=== PATIENT | female | born 1965 | race Hispanic/Latino ===

== ENCOUNTER 2017-04-16 15:47 | Inpatient (IN) | payer SELFPAY ==
[2017-04-16 15:48] VITALS: BMI 24.9
--- NOTE | 2017-04-16 16:20 | C.PDOC ---
History Of Present Illness 51 y/o female presents to emergency department who states that she has been using heroin for years and "cannot do another day". Patient reports she is suicidal but denies suicidal plan or action. Patient denies drinking etoh or other drug use. Last use was this morning. Denies homicidal ideation. No other complaints on arrival. Time Seen by Provider: 04/16/17 16:12 Chief Complaint (Nursing): Substance Abuse History Per: Patient History/Exam Limitations: no limitations Onset/Duration Of Symptoms: Persistent Current Symptoms Are (Timing): Still Present Modifying Factor(s): Narcotics Associated Symptoms: Suicidal Thoughts. denies: Suicidal Plan Recent travel outside of the [place]: No Past Medical History Reviewed: Historical Data, Nursing Documentation, Vital Signs Vital Signs: Last Vital Signs Temp 97.7 F 04/16/17 16:12 Pulse 64 04/16/17 16:12 Resp 18 04/16/17 16:12 BP 104/54 L 04/16/17 16:12 Pulse Ox 99 04/16/17 18:23 - Medical History PMH: Depression Surgical History: Appendectomy - [facility] Procedures DRUG DETOXIFICATION (07/27/14) OTHER APPENDECTOMY (04/21/97) OTHER GROUP THERAPY (07/27/14) Family History: States: Unknown Family Hx - Social History Hx Tobacco Use: Yes Hx Alcohol Use: No Hx Substance Use: Yes - Immunization History Hx Tetanus Toxoid Vaccination: No Hx Influenza Vaccination: No Hx Pneumococcal Vaccination: No Review Of Systems Except As Marked, All Systems Reviewed And Found Negative. Constitutional: Negative for: Fever, Chills Cardiovascular: Negative for: Chest Pain Respiratory: Negative for: Cough, Shortness of Breath, Wheezing Gastrointestinal: Negative for: Vomiting Skin: Negative for: Rash Physical Exam - Physical Exam Appears: Non-toxic, No Acute Distress Skin: Normal Color, Warm, Dry Head: Atraumatic, Normacephalic Oral Mucosa: Moist Chest: Symmetrical Cardiovascular: Rhythm Regular Respiratory: Normal Breath Sounds, No Rales, No Rhonchi, No Wheezing Gastrointestinal/Abdominal: Normal Exam, Soft, No Tenderness Back: Normal Inspection Extremity: Normal ROM, Capillary Refill (< 2 sec. ) Neurological/Psych: Oriented x3, Normal Speech, Normal Cognition ED Course And Treatment - Laboratory Results Result Diagrams: 04/16/17 16:31 04/16/17 16:31 Lab Interpretation: No Acute Changes Interpretation Of Abnormal: UDS + opiates and cocaine O2 Sat by Pulse Oximetry: 99 (RA) Pulse Ox Interpretation: Normal Progress Note: Labs ordered. Discussed with crisis for eval at bedside. Patient will be admitted for heroin detox. Reevaluation Time: 18:22 Reassessment Condition: Unchanged (Yunior is medically cleared for detox admission.) Disposition - Disposition Disposition: HOSPITALIZED Disposition Time: 18:23 Condition: STABLE - Clinical Impression Clinical Impression: Narcotic addiction - Scribe Statement The provider has reviewed the documentation as recorded by the Scribe SM All medical record entries made by the Scribe were at my direction and personally dictated by me. I have reviewed the chart and agree that the record accurately reflects my personal performance of the history, physical exam, medical decision making, and the department course for this patient. I have also personally directed, reviewed, and agree with the discharge instructions and disposition.
[2017-04-16 16:34] LABS: BASO % 0.5 % (0.0-2.0); EOS # 0.1 K/uL (0.0-0.7); EOS % 2.3 % (0.0-4.0); HEMATOCRIT 36.7 % (34.0-47.0); LYMPH # 2.6 K/uL (1.0-4.3); LYMPH % 47.8 % (20.0-40.0); MEAN CORPUSCULAR HGB CONC 32.9 g/dL (33.0-37.0); MEAN PLATELET VOLUME 10.7 fL (7.2-11.7); MONO # 0.3 K/uL (0.0-0.8); MONO % 5.6 % (0.0-10.0); RED CELL DISTRIBUTION WIDTH 15.5 % (11.5-14.5); WHITE BLOOD COUNT 5.4 K/uL (4.8-10.8)
[2017-04-16 16:40] LABS: MEAN CELL VOLUME 88.1 fL (81.0-99.0)
[2017-04-16 17:06] LABS: ALCOHOL SERUM < 10 mg/dl (0-10); ALKALINE PHOSPHATASE 45 U/L (38-126); ALT/SGPT 39 U/L (9-52); AST/SGOT 27 U/L (14-36); BILIRUBIN,TOTAL 0.6 mg/dL (0.2-1.3); BLOOD UREA NITROGEN 11 mg/dL (7-17); CALCIUM 8.5 mg/dl (8.6-10.4); CARBON DIOXIDE 26 mmol/L (22-30); CHLORIDE 103 mmol/L (98-107); GFR AFRICAN-AMERICAN > 60; GLUCOSE,RANDOM 110 mg/dL (65-105); SODIUM 135 mmol/L (132-148); TOTAL PROTEIN 6.6 g/dL (6.3-8.3)
[2017-04-16 17:26] LABS: ALB/GLOB RATIO 1.1 (1.0-2.1)
[2017-04-16 18:04] LABS: RBC URINE 4 /hpf (0-3); URINE BACTERIA OCC (<OCC); URINE BILIRUBIN NEGATIVE (NEGATIVE); URINE BLOOD 1+ (NEGATIVE); URINE COLOR Yellow (YELLOW); URINE GLUCOSE (UA) NORMAL (Normal); URINE KETONE NEGATIVE (NEGATIVE); URINE LEUKOCYTE ESTERASE NEG Leu/uL (Negative); URINE PROTEIN NEGATIVE (NEGATIVE); WBC URINE 2 /hpf (0-5)
--- NOTE | 2017-04-16 21:51 | PCM.BM ---
<Fauzia Brown - Last Filed: 04/16/17 21:51> Treatment Plan Problems - Problems identified on initial assessmt Potential for opiate withdrawal Date Initiated: 04/16/17 Time Initiated: 21:51 Assessment reference: NA Status: Active Priority: 1 Treatment assets and liabiliti Patient Assests: cooperative, ADL independent, negotiates basic needs, cognitively intact Patient Liabilities: substance abuse, other (homeless) - Milieu Protocol Maintain good personal hygiene: daily Encourage regular showers, daily Remind patient to perform daily oral care, daily Assist patient to perform ADL's Conduct patient checks and document Observation sheet: Q15 minutes Maintain personal safety: every shift Educate patient to report safety concerns to staff, every shift Monitor environment for contraband/sharps Medication safety: Monitor for expected outcome, potential side effects: every shift, Assess barriers to learning: every shift, Assess readiness for medication education: every shift <Bro Arredondo - Last Filed: 04/18/17 00:23> - Diagnosis (1) Opioid use disorder, severe, dependence Status: Acute Interventions: 04/18/17 00:23 * Assess 7x/week regarding severity of withdrawal * Educate regarding risks, benefits, side effects and alternatives of medications * Use Motivational Interviewing for abstinence * Use CBT for relapse prevention * Medication management for withdrawal symptoms * Encourage medication assisted treatment * <Priti Pitts - Last Filed: 04/21/17 08:45> Family Contact Family involvement: Famliy/SO not involved Family contact: Patient declines to allow family contact at present - Goals for Treatment Patient goals for treatment: Complete detox and apply for O/P. Discharge/Continuing Care - Education Needs Education Needs: Patient Medication, Patient Diagnosis/Disease Process, Patient Coping Skills, Patient Anger Management skills, Patient Placement options, Patient Community resources - Discharge Discharge Criteria: No longer exhibiting s/s of withdrawal, Reduction of target symptoms Discharge to:: Home - Treatment Team Participation Patient/Family/SO Statement: 04/21/17 08:45 "i WANNA GO TO OUTPATIENT AFTER DETOX." Discussed with Family/SO: No Was Patient/Family/SO present at Treatment Team Meeting: Yes
[2017-04-17] MEDS ORDERED: Aluminum Hydroxide/Magnesium Hydroxide Susp (30 mL) PO PRN (10:34)
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
--- NOTE | 2017-04-18 13:29 | PCM.PYCHPN ---
Psychiatric Progress Note - Psychiatric Progress Note Patient seen today, length of contact: 15 min Patient Chief Complaint: "A little better" Problems Identified/Issues Discussed: The pt is seen, chart reviewed, case discussed with staff. The pt is compliant with medications and reports no side-effects. Symptoms are improving but needs more time to stabilize. After care discussed, support and psychoeducation given. Medication Change: Yes (detox changes daily) Medical Record Reviewed: Yes Mental Status Examination - Cognitive Function Orientation: Person, Place, Situation, Time Memory: Intact Attention: Poor Concentration: Poor Association: WNL Fund of Knowledge: WNL - Mood Mood: Neutral - Affect Affect: Constricted - Speech Speech: Appropriate - Formal Thought Process Formal Thought Process: No Impairment - Suicidal Ideation Suicidal Ideation: No - Homicidal Ideation Homicidal Ideation: No Goal/Treatment Plan - Goal/Treatment Plan Need for Continued Stay: Discharge may exacerbated symptoms, Severe functional impairment Progress Toward Problem(s) and Goals/Treatment Plan: methadone detox As needed medications Gabapentin for augmentation and cocaine wdw Attend groups and activities Supportive therapy and psychoeducation [place] for abstinence CBT for relapse prevention Encourage MAT Refer to rehab or IOP Attend self-help groups as well [place] and [place] for tobacco Flexeril added she has severe back pain
--- NOTE | 2017-04-18 18:30 | RAD ---
HISTORY: Rehab COMPARISON: No prior. TECHNIQUE: Chest PA and lateral FINDINGS: LUNGS: No active pulmonary disease. PLEURA: No significant pleural effusion identified. No pneumothorax apparent. CARDIOVASCULAR: Normal. OSSEOUS STRUCTURES: No significant abnormalities. VISUALIZED UPPER ABDOMEN: Normal. OTHER FINDINGS: None. IMPRESSION: No active disease.
--- NOTE | 2017-04-19 16:02 | PCM.PYCHPN ---
Psychiatric Progress Note - Psychiatric Progress Note Patient seen today, length of contact: 15 min Patient Chief Complaint: "I'm fine" Problems Identified/Issues Discussed: The pt is seen, chart reviewed, case discussed with staff. The pt reported that she is feeling fine with meds. She denied opioid withdrawal symptoms. The pt is compliant with medications and reports no side-effects. Symptoms are improving but needs more time to stabilize. After care discussed, support and psychoeducation given. DSM 5 Symptoms Update: opioid withdrawal opioid use disorder severe cocaine use disorder severe tobacco use disorder severe Medication Change: Yes (methadone taper) Medical Record Reviewed: Yes Mental Status Examination - Cognitive Function Orientation: Person, Place, Situation, Time Memory: Intact Attention: WNL Concentration: WNL Association: WNL Fund of Knowledge: WN Decription of patient's judgement and insights: fair/fair - Mood Mood: Neutral - Affect Affect: Constricted - Speech Speech: Appropriate - Formal Thought Process Formal Thought Process: No Impairment Psychotic Thoughts and Behaviors: denied - Suicidal Ideation Suicidal Ideation: No - Homicidal Ideation Homicidal Ideation: No Goal/Treatment Plan - Goal/Treatment Plan Need for Continued Stay: Discharge may exacerbated symptoms Progress Toward Problem(s) and Goals/Treatment Plan: methadone detox As needed medications Gabapentin for augmentation and cocaine wdw Attend groups and activities Supportive therapy and psychoeducation [place] for abstinence CBT for relapse prevention Encourage MAT Refer to rehab or IOP Attend self-help groups as well Patch and [place] for tobacco Estimated Date of D/C: 04/21/17 - Smoking Cessation Smoking Cessation Initiated: Yes
[2017-04-19] MEDS: Hydrocortisone 0.5% Cream(30 gm) TOP SCH (18:15)
[2017-04-20] MEDS: Hydrocortisone 0.5% Cream(30 gm) TOP SCH ×2 (09:33→18:08)
--- NOTE | 2017-04-20 15:43 | PCM.PYCHPN ---
Psychiatric Progress Note - Psychiatric Progress Note Patient seen today, length of contact: 15 min Patient Chief Complaint: "I'm fine" Problems Identified/Issues Discussed: The pt is seen, chart reviewed, case discussed with staff. The pt reported that she is feeling fine with meds. She reported that she had withdrawal symptoms earlier in the AM, but after taking meds she is feeling fine. The pt is compliant with medications and reports no side-effects. Symptoms are improving but needs more time to stabilize. After care discussed, support and psychoeducation given. DSM 5 Symptoms Update: Opioid dependence, withdrawal symptoms. Medication Change: Yes (detox changes daily) Medical Record Reviewed: Yes Mental Status Examination - Cognitive Function Orientation: Person, Place, Situation, Time Memory: Intact Attention: Poor Concentration: Poor Association: WNL Fund of Knowledge: WNL Decription of patient's judgement and insights: good/good - Mood Mood: Neutral - Affect Affect: Constricted - Speech Speech: Appropriate - Formal Thought Process Formal Thought Process: No Impairment - Suicidal Ideation Suicidal Ideation: No - Homicidal Ideation Homicidal Ideation: No Goal/Treatment Plan - Goal/Treatment Plan Need for Continued Stay: Discharge may exacerbated symptoms, Severe functional impairment Progress Toward Problem(s) and Goals/Treatment Plan: methadone detox As needed medications Gabapentin for augmentation and cocaine wdw Attend groups and activities Supportive therapy and psychoeducation [place] for abstinence CBT for relapse prevention Encourage MAT Refer to rehab or IOP Attend self-help groups as well [place] and [place] for tobacco Estimated Date of D/C: 04/21/17
[2017-04-20 20:41] VITALS: RESP 18
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
[2017-04-21 09:08] VITALS: BP 94/60; PULSE 71; TEMP 97.4; O2SAT 97
[2017-04-21] MEDS: Hydrocortisone 0.5% Cream(30 gm) TOP SCH (09:09)
== END 2017-04-21 09:20 | disposition home or self-care (01) | DRG 895 ==
LOC: C.ER 15:47 → C.7D 19:29
PROC: HZ2ZZZZ Detoxification Services for Substance Abuse Treatment (ICD-10-PCS; principal; 2017-04-16)
PROC: HZ52ZZZ Individual Psychotherapy for Substance Abuse Treatment, Cognitive-Behavioral (ICD-10-PCS; 2017-04-16)
PROC: HZ42ZZZ Group Counseling for Substance Abuse Treatment, Cognitive-Behavioral (ICD-10-PCS; 2017-04-16)
PROC: HZ59ZZZ Individual Psychotherapy for Substance Abuse Treatment, Supportive (ICD-10-PCS; 2017-04-16)
PROC: HZ56ZZZ Individual Psychotherapy for Substance Abuse Treatment, Psychoeducation (ICD-10-PCS; 2017-04-16)
PROC: HZ46ZZZ Group Counseling for Substance Abuse Treatment, Psychoeducation (ICD-10-PCS; 2017-04-16)
DX: F11.23 Opioid dependence with withdrawal (principal); R45.851 Suicidal ideations; F14.20 Cocaine dependence, uncomplicated; F17.210 Nicotine dependence, cigarettes, uncomplicated; M54.9 Dorsalgia, unspecified

== ENCOUNTER 2017-09-19 03:11 | Emergency (ER) | payer OTHER ==
[2017-09-19 03:12] VITALS: BMI 24.9
== END 2017-09-19 03:30 | disposition left against medical advice (07) ==
LOC: C.ER 03:11
DX: Z02.89 Encounter for other administrative examinations (principal)

== ENCOUNTER 2017-10-12 11:48 | Inpatient (IN) | payer MEDICAID, OTHER ==
[2017-10-12 11:48] VITALS: BMI 24.9
[2017-10-12 12:26] LABS: BASO % 0.2 % (0.0-2.0); LYMPH # 1.5 K/uL (1.0-4.3); LYMPH % 25.3 % (20.0-40.0); MEAN CELL VOLUME 89.6 fL (81.0-99.0); MEAN CORPUSCULAR HEMOGLOBIN 30.1 pg (27.0-31.0); MEAN CORPUSCULAR HGB CONC 33.6 g/dL (33.0-37.0); MEAN PLATELET VOLUME 10.2 fL (7.2-11.7); MONO # 0.3 K/uL (0.0-0.8); MONO % 5.8 % (0.0-10.0); NEUT % 68.7 % (50.0-75.0); RBC 4.3 Mil/uL (3.80-5.20); WHITE BLOOD COUNT 5.8 K/uL (4.8-10.8)
[2017-10-12 12:35] LABS: HCG,QUALITATIVE URINE NEGATIVE (NEGATIVE)
[2017-10-12 12:41] LABS: ALB/GLOB RATIO 1.1 (1.0-2.1); ALBUMIN 3.5 g/dL (3.5-5.0); ALT/SGPT 8 U/L (9-52); AST/SGOT 18 U/L (14-36); BLOOD UREA NITROGEN 11 mg/dL (7-17); CALCIUM 8.7 mg/dl (8.6-10.4); GFR AFRICAN-AMERICAN > 60; GFR NON-AFRICAN AMERICAN > 60
[2017-10-12 12:42] LABS: SQUAMOUS EPITHIAL 16 /hpf (0-5); URINE BACTERIA RARE (<OCC); URINE BILIRUBIN NEGATIVE (NEGATIVE); URINE CLARITY Hazy (Clear); URINE COLOR Yellow (YELLOW); URINE GLUCOSE (UA) NORMAL (Normal); URINE LEUKOCYTE ESTERASE NEG Leu/uL (Negative); URINE PROTEIN 1+ mg/dL (NEGATIVE); URINE UROBILINOGEN NORMAL mg/dL (0.2-1.0)
[2017-10-12 12:44] LABS: URINE BLOOD 1+ (NEGATIVE)
[2017-10-12 12:53] LABS: BARBITURATES, UR NEGATIVE (NEGATIVE); BENZODIAZEPINES, UR NEGATIVE (NEGATIVE); PHENCYCLIDINE, UR NEGATIVE (NEGATIVE)
[2017-10-12 13:02] LABS: OPIATES, UR POSITIVE (NEGATIVE)
--- NOTE | 2017-10-12 13:03 | RAD ---
HISTORY: Detox/Psy COMPARISON: Chest radiographs 04/18/2017. TECHNIQUE: Chest PA and lateral FINDINGS: LUNGS: No active pulmonary disease. PLEURA: No significant pleural effusion identified. No pneumothorax apparent. CARDIOVASCULAR: Normal. OSSEOUS STRUCTURES: No significant abnormalities. VISUALIZED UPPER ABDOMEN: Normal. OTHER FINDINGS: None. IMPRESSION: No interval acute cardiopulmonary disease appreciated.
--- NOTE | 2017-10-12 13:23 | C.PDOC ---
History Of Present Illness 52 year old female, with PMHx of heroin and cocaine abuse, presents to ED expressing suicidal thoughts without a plan. Last heroin intake was this morning. Otherwise, denies HI, hallucinations, chest pain, shortness of breath, headache, fever, chills, cough, nausea, vomiting, diarrhea, abdominal pain, dizziness, or any active physical complaints at this time. Time Seen by Provider: 10/12/17 12:00 Chief Complaint (Nursing): Psychiatric Evaluation History Per: Patient History/Exam Limitations: no limitations Onset/Duration Of Symptoms: Gradual Current Symptoms Are (Timing): Still Present Suicide/Self Injury Attempted (Context): None Modifying Factor(s): Cocaine Associated Symptoms: Suicidal Thoughts. denies: Suicidal Plan Involuntary Hold By: None Recent travel outside of the [place]: No Additional History Per: Patient Past Medical History Reviewed: Historical Data, Nursing Documentation, Vital Signs Vital Signs: Last Vital Signs Temp 98 F 10/12/17 11:56 Pulse 69 10/12/17 11:56 Resp 18 10/12/17 11:56 BP 90/55 L 10/12/17 11:56 Pulse Ox 96 10/12/17 13:39 - Medical History PMH: Depression Denies: Diabetes, Hepatitis, HIV, HTN, Seizures, Sexually Transmitted Disease Surgical History: Appendectomy - [facility] Procedures DETOXIFICATION SERVICES FOR SUBSTANCE ABUSE TREATMENT (04/16/17) DRUG DETOXIFICATION (07/27/14) GROUP WAREHOUSE DIRECTOR FOR SUBSTANCE ABUSE TREATMENT, PSYCHOEDUCATION (04/16/17) GROUP WAREHOUSE DIRECTOR FOR SUBSTANCE ABUSE, COGNITIVE BEHAVIORAL (04/16/17) INDIV PSYCHOTHERAPY FOR SUBSTANCE ABUSE TREATMENT, SUPPORT (04/16/17) INDIV PSYCHOTHERAPY FOR SUBSTANCE ABUSE, COGNITIV BEHAVIORAL (04/16/17) INDIV PSYCHOTHERAPY FOR SUBSTANCE ABUSE, PSYCHOEDUCATION (04/16/17) OTHER APPENDECTOMY (04/21/97) OTHER GROUP THERAPY (07/27/14) Family History: States: Unknown Family Hx - Social History Hx Tobacco Use: Yes Hx Alcohol Use: No Hx Substance Use: Yes - Immunization History Hx Tetanus Toxoid Vaccination: No Hx Influenza Vaccination: No Hx Pneumococcal Vaccination: No Review Of Systems Except As Marked, All Systems Reviewed And Found Negative. Constitutional: Negative for: Fever, Chills Cardiovascular: Negative for: Chest Pain, Palpitations Respiratory: Negative for: Cough, Shortness of Breath Gastrointestinal: Negative for: Nausea, Vomiting, Abdominal Pain Neurological: Negative for: Headache, Dizziness Psych: Positive for: Suicidal ideation Physical Exam - Physical Exam Appears: Non-toxic, No Acute Distress Skin: Normal Color, Warm, Dry, No Rash Head: Normacephalic Eye(s): bilateral: PERRL Nose: No Flaring, No Discharge Oral Mucosa: Moist, No Drooling Neck: Trachea Midline, Supple Cardiovascular: Rhythm Regular, No Murmur, No JVD Respiratory: No Decreased Breath Sounds, No Accessory Muscle Use Gastrointestinal/Abdominal: Soft, No Tenderness Extremity: Normal ROM, No Deformity Neurological/Psych: Oriented x3, Normal Speech ED Course And Treatment - Laboratory Results Result Diagrams: 10/12/17 12:21 10/12/17 12:21 Lab Interpretation: No Acute Changes O2 Sat by Pulse Oximetry: 96 (RA) Pulse Ox Interpretation: Normal Progress Note: Blood work, urinalysis, CXR ordered and reviewed. At 1:21PM, pt resting comfortably, not in any apparent distress. Afebrile, hemodynamicaly stable. NOn-toxic. Neurologicaly intact. Blood work review, appears normal. Pt is medically cleared for PES evaluation. After pt was seen by PES, case discussed with and admission to psych unit with Dx: Depession w/ suicidal ideation, opioid dependance recommend. Disposition - Disposition Disposition: HOSPITALIZED Disposition Time: 13:23 Condition: STABLE Forms: [facility] ([facility]wana) - Clinical Impression Clinical Impression: Narcotic addiction, Depression with suicidal ideation - PA / PROOF LOAD MECHANIC / Resident Statement MD/DO has reviewed & agrees with the documentation as recorded. - Scribe Statement The provider has reviewed the documentation as recorded by the Michelleibdayday Garcia All medical record entries made by the Michelleibdayday were at my direction and personally dictated by me. I have reviewed the chart and agree that the record accurately reflects my personal performance of the history, physical exam, medical decision making, and the department course for this patient. I have also personally directed, reviewed, and agree with the discharge instructions and disposition.
[2017-10-12 15:04] VITALS: O2SAT 98
--- NOTE | 2017-10-12 16:06 | PCM.BM ---
<Jersey Goodson - Last Filed: 10/12/17 16:03> Treatment Plan Problems - Problems identified on initial assessmt Depression Date Initiated: 10/12/17 Time Initiated: 16:04 Assessment reference: NA Status: Active Substance use Date Initiated: 10/12/17 Time Initiated: 16:04 Assessment reference: NA Status: Active Treatment assets and liabiliti Patient Assests: cooperative, ADL independent, negotiates basic needs, cognitively intact Patient Liabilities: live alone, financial problems (Unemployed), substance abuse (Heroin), medical problems (sciatica) - Milieu Protocol Maintain good personal hygiene: daily Encourage regular showers, every shift Remind patient to perform daily oral care, every shift Assist patient to perform ADL's Conduct patient checks and document Observation sheet: Q15 minutes (For Safety) Maintain personal safety: every shift Educate patient to report safety concerns to staff, every shift Monitor environment for contraband/sharps Medication safety: Monitor for expected outcome, potential side effects: every shift, Assess barriers to learning: every shift, Assess readiness for medication education: every shift <Anup Gandara - Last Filed: 10/13/17 10:26> - Diagnosis (1) Depression with suicidal ideation Status: Acute Interventions: 10/13/17 10:26 * Assess/adjust medications daily and /or as needed * See patient on an individual basis 7x/week to assess symptoms of depression * Monitor for side effects & effectiveness of medications * (2) Opioid use disorder, severe, dependence Status: Acute Interventions: 10/13/17 10:26 * Assess 7x/week regarding severity of withdrawal * Educate regarding risks, benefits, side effects and alternatives of medications * Use Motivational Interviewing for abstinence * Use CBT for relapse prevention * Medication management for withdrawal symptoms * Encourage medication assisted treatment * <Olesya Pacheco - Last Filed: 10/13/17 11:53> Family Contact Family involvement: Denis/SO not involved - Goals for Treatment Patient goals for treatment: "I want to go to [facility] rehab." Discharge/Continuing Care - Education Needs Education Needs: Patient Medication, Patient Coping Skills, Patient Placement options, Patient Community resources - Discharge Discharge Criteria: Tolerates medication w/o severe side effects, No longer exhibiting s/s of withdrawal, Reduction of target symptoms Discharge to:: Substance Abuse Rehab - Treatment Team Participation Discussed with Family/SO: No Was Patient/Family/SO present at Treatment Team Meeting: Yes
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
--- NOTE | 2017-10-14 10:06 | PCM.PYCHPN ---
Psychiatric Progress Note - Psychiatric Progress Note Patient seen today, length of contact: 15 min Patient Chief Complaint: CC: "I was feeling depressed ' Problems Identified/Issues Discussed: Patient seen and evaluated, chart reviewed and discussed with the nurse. Today patient reports a bit improvement in her depressed mood but still remained isolated, withdrawn and confined to her room. She is on methadone taper and reports withdrawal symptoms including cramps, back pain and sweating. She is taking medications and denies any side effects. Supportive therapy and psychoeducation were given. Medication Change: Yes Medical Record Reviewed: Yes Mental Status Examination - Cognitive Function Orientation: Person, Place, Situation, Time Memory: Intact Attention: WNL Concentration: Poor Association: WNL Fund of Knowledge: Poor - Mood Mood: Depressed, Anxious - Affect Affect: Constricted, Depressed - Speech Speech: Soft - Formal Thought Process Formal Thought Process: No Impairment - Suicidal Ideation Suicidal Ideation: No - Homicidal Ideation Homicidal Ideation: No Goal/Treatment Plan - Goal/Treatment Plan Need for Continued Stay: Severe depression anxiety, Severe functional impairment Progress Toward Problem(s) and Goals/Treatment Plan: Major depressive disorder recurrent severe without psychotic features CBT Psychoeducation Supportive therapy, group therapy, individual therapy -Trazodone 50 mg PO HS PRN -Remeron 30 mg PO HS -Atarax 25 mg PO q4H PRN Opioid use disorder severe -CBT -Psychoeducation -Supportive therapy, individual therapy -Use [place] for abstinence Opioid withdrawal -CBT -Psychoeducation -Supportive therapy, individual therapy -Start methadone taper -Start prn meds -Clonidine 0.1 mg PO q8 PRN -Neurontin 600 mg PO TID Cocaine use disorder moderate -Monitor signs and symptoms -Use [place] for abstinence - Smoking Cessation Smoking Cessation Initiated: No
--- NOTE | 2017-10-15 09:10 | PCM.PYCHPN ---
Psychiatric Progress Note - Psychiatric Progress Note Patient seen today, length of contact: 15 min Patient Chief Complaint: CC: "I'm doing better" Problems Identified/Issues Discussed: The pt is seen, chart reviewed, case discussed with staff. The pt is compliant with medications and reports no side-effects. Symptoms are improving but needs more time to stabilize. After care discussed, support and psychoeducation given. Patient reported that her mood is improving. Patient did not sleep well, "tossed and turned all night". Patient states her withdrawal symptoms are improving. Medication Change: Yes (Methadone taper) Medical Record Reviewed: Yes Mental Status Examination - Cognitive Function Orientation: Person, Place, Situation, Time Memory: Intact Attention: WNL Concentration: Poor Association: WNL Fund of Knowledge: Poor - Mood Mood: Depressed, Anxious - Affect Affect: Constricted, Depressed - Speech Speech: Soft - Formal Thought Process Formal Thought Process: No Impairment - Suicidal Ideation Suicidal Ideation: No - Homicidal Ideation Homicidal Ideation: No Goal/Treatment Plan - Goal/Treatment Plan Need for Continued Stay: Discharge may exacerbated symptoms, Severe functional impairment Progress Toward Problem(s) and Goals/Treatment Plan: Major depressive disorder recurrent severe without psychotic features CBT Psychoeducation Supportive therapy, group therapy, individual therapy -Trazodone 50 mg PO HS PRN -Remeron 30 mg PO HS -Atarax 25 mg PO q4H PRN Opioid use disorder severe -CBT -Psychoeducation -Supportive therapy, individual therapy -Use [place] for abstinence Opioid withdrawal -CBT -Psychoeducation -Supportive therapy, individual therapy -Start methadone taper -Start prn meds -Clonidine 0.1 mg PO q8 PRN -Neurontin 600 mg PO TID Cocaine use disorder moderate -Monitor signs and symptoms -Use [place] for abstinence - Smoking Cessation Smoking Cessation Initiated: No
[2017-10-16 06:30] VITALS: RESP 20
--- NOTE | 2017-10-16 16:36 | PCM.PYCHPN ---
Psychiatric Progress Note - Psychiatric Progress Note Patient seen today, length of contact: 15 min Patient Chief Complaint: CC: "I'm doing better" Problems Identified/Issues Discussed: The pt is seen, chart reviewed, case discussed with staff. The pt is compliant with medications and reports no side-effects. Symptoms are improving but needs more time to stabilize. After care discussed, support and psychoeducation given. Patient reported that her mood is improving. Patient reports improvement in her sleep and agitation. Patient states her withdrawal symptoms are improving. Medication Change: Yes (Methadone taper) Medical Record Reviewed: Yes Mental Status Examination - Cognitive Function Orientation: Person, Place, Situation, Time Memory: Intact Attention: WNL Concentration: WNL Association: WNL Fund of Knowledge: Poor - Mood Mood: Depressed, Anxious - Affect Affect: Constricted, Depressed - Speech Speech: Soft - Formal Thought Process Formal Thought Process: No Impairment - Suicidal Ideation Suicidal Ideation: No - Homicidal Ideation Homicidal Ideation: No Goal/Treatment Plan - Goal/Treatment Plan Need for Continued Stay: Discharge may exacerbated symptoms, Severe functional impairment Progress Toward Problem(s) and Goals/Treatment Plan: Major depressive disorder recurrent severe without psychotic features CBT Psychoeducation Supportive therapy, group therapy, individual therapy -Trazodone 50 mg PO HS PRN -Remeron 30 mg PO HS -Atarax 25 mg PO q4H PRN Opioid use disorder severe -CBT -Psychoeducation -Supportive therapy, individual therapy -Use [place] for abstinence Opioid withdrawal -CBT -Psychoeducation -Supportive therapy, individual therapy -Start methadone taper -Start prn meds -Clonidine 0.1 mg PO q8 PRN -Neurontin 600 mg PO TID Cocaine use disorder moderate -Monitor signs and symptoms -Use [place] for abstinence - Smoking Cessation Smoking Cessation Initiated: No
[2017-10-16] MEDS ORDERED: Trolamine Salicylate 10% Cream (85 gm) TOP PRN (17:02)
[2017-10-17 06:31] VITALS: TEMP 97.6
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
[2017-10-17 13:58] VITALS: BP 116/69; PULSE 78
== END 2017-10-17 10:26 | disposition home or self-care (01) | DRG 430 ==
LOC: C.ER 11:48 → C.5E 13:25
PROVIDERS: ADMIT Psychiatry & Neurology Psychiatry; ATTEND Psychiatry & Neurology Psychiatry
PROC: GZHZZZZ Group Psychotherapy (ICD-10-PCS; principal; 2017-10-12)
PROC: HZ52ZZZ Individual Psychotherapy for Substance Abuse Treatment, Cognitive-Behavioral (ICD-10-PCS; 2017-10-12)
PROC: GZ58ZZZ Individual Psychotherapy, Cognitive-Behavioral (ICD-10-PCS; 2017-10-12)
PROC: GZ56ZZZ Individual Psychotherapy, Supportive (ICD-10-PCS; 2017-10-12)
PROC: HZ2ZZZZ Detoxification Services for Substance Abuse Treatment (ICD-10-PCS; 2017-10-12)
PROC: HZ59ZZZ Individual Psychotherapy for Substance Abuse Treatment, Supportive (ICD-10-PCS; 2017-10-12)
PROC: HZ56ZZZ Individual Psychotherapy for Substance Abuse Treatment, Psychoeducation (ICD-10-PCS; 2017-10-12)
PROC: HZ42ZZZ Group Counseling for Substance Abuse Treatment, Cognitive-Behavioral (ICD-10-PCS; 2017-10-12)
PROC: HZ46ZZZ Group Counseling for Substance Abuse Treatment, Psychoeducation (ICD-10-PCS; 2017-10-12)
DX: F33.2 Major depressive disorder, recurrent severe without psychotic features (principal); F11.23 Opioid dependence with withdrawal; F14.10 Cocaine abuse, uncomplicated; F43.10 Post-traumatic stress disorder, unspecified; R45.851 Suicidal ideations; G47.00 Insomnia, unspecified; F17.210 Nicotine dependence, cigarettes, uncomplicated; Z81.8 Family history of other mental and behavioral disorders; Z91.410 Personal history of adult physical and sexual abuse

== ENCOUNTER 2018-06-30 14:31 | Inpatient (IN) | payer MEDICAID, OTHER ==
[2018-06-30 15:01] VITALS: BMI 24.0
--- NOTE | 2018-06-30 15:29 | C.PDOC ---
History Of Present Illness 53 y/o female pt presents to the ER c/o suicidal ideation to the nurse, but denies the claim in the main ER. Pt was screaming and demanding to leave after her suicidal ideation claim. Patient is now currently sleeping. <Jesica Cevallos - Last Filed: 06/30/18 19:36> History Per: Patient History/Exam Limitations: no limitations Onset/Duration Of Symptoms: Days Current Symptoms Are (Timing): Still Present <Jesica Cevallos - Last Filed: 06/30/18 19:36> <Jorge Luis Del Valle - Last Filed: 06/30/18 20:34> Time Seen by Provider: 06/30/18 15:21 Chief Complaint (Nursing): Psychiatric Evaluation Past Medical History Reviewed: Historical Data, Nursing Documentation, Vital Signs Vital Signs: Last Vital Signs Temp 97.8 F 06/30/18 15:01 Pulse 61 06/30/18 15:01 Resp 20 06/30/18 15:01 BP 119/77 06/30/18 15:01 Pulse Ox 100 06/30/18 15:01 - Medical History PMH: Depression Surgical History: Appendectomy - [facility] DETOXIFICATION SERVICES FOR SUBSTANCE ABUSE TREATMENT (10/12/17) DRUG DETOXIFICATION (07/27/14) GROUP 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 FOR SUBSTANCE ABUSE TREATMENT, PSYCHOEDUCATION (10/12/17) GROUP 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 FOR SUBSTANCE ABUSE, COGNITIVE BEHAVIORAL (10/12/17) GROUP PSYCHOTHERAPY (10/12/17) INDIV PSYCHOTHERAPY FOR SUBSTANCE ABUSE TREATMENT, SUPPORT (10/12/17) INDIV PSYCHOTHERAPY FOR SUBSTANCE ABUSE, COGNITIV BEHAVIORAL (10/12/17) INDIV PSYCHOTHERAPY FOR SUBSTANCE ABUSE, PSYCHOEDUCATION (10/12/17) INDIVIDUAL PSYCHOTHERAPY, COGNITIVE-BEHAVIORAL (10/12/17) INDIVIDUAL PSYCHOTHERAPY, SUPPORTIVE (10/12/17) OTHER APPENDECTOMY (04/21/97) OTHER GROUP THERAPY (07/27/14) Family History: States: Unknown Family Hx - Social History Hx Tobacco Use: Yes Hx Alcohol Use: No Hx Substance Use: Yes - Immunization History Hx Tetanus Toxoid Vaccination: No Hx Influenza Vaccination: No Hx Pneumococcal Vaccination: No <Jesica Cevallos - Last Filed: 06/30/18 19:36> Vital Signs: Last Vital Signs Temp 97.4 F L 06/30/18 18:35 Pulse 64 06/30/18 18:35 Resp 18 06/30/18 18:35 BP 121/70 06/30/18 20:06 Pulse Ox 100 06/30/18 19:36 - [facility] DETOXIFICATION SERVICES FOR SUBSTANCE ABUSE TREATMENT (10/12/17) DRUG DETOXIFICATION (07/27/14) GROUP 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 FOR SUBSTANCE ABUSE TREATMENT, PSYCHOEDUCATION (10/12/17) GROUP 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 FOR SUBSTANCE ABUSE, COGNITIVE BEHAVIORAL (10/12/17) GROUP PSYCHOTHERAPY (10/12/17) INDIV PSYCHOTHERAPY FOR SUBSTANCE ABUSE TREATMENT, SUPPORT (10/12/17) INDIV PSYCHOTHERAPY FOR SUBSTANCE ABUSE, COGNITIV BEHAVIORAL (10/12/17) INDIV PSYCHOTHERAPY FOR SUBSTANCE ABUSE, PSYCHOEDUCATION (10/12/17) INDIVIDUAL PSYCHOTHERAPY, COGNITIVE-BEHAVIORAL (10/12/17) INDIVIDUAL PSYCHOTHERAPY, SUPPORTIVE (10/12/17) OTHER APPENDECTOMY (04/21/97) OTHER GROUP THERAPY (07/27/14) <Jorge Luis Del Valle - Last Filed: 06/30/18 20:34> Review Of Systems Except As Marked, All Systems Reviewed And Found Negative. Psych: Positive for: Suicidal ideation. Negative for: Other (homicidal ideation) <Jesica Cevallos - Last Filed: 06/30/18 19:36> Physical Exam - Physical Exam Appears: Well, Non-toxic, No Acute Distress Head: Atraumatic, Normacephalic Eye(s): bilateral: PERRL, EOMI, Other (clear conjunctiva ) Oral Mucosa: Moist Chest: Symmetrical Cardiovascular: Rhythm Regular Respiratory: Normal Breath Sounds, No Rales, No Rhonchi, No Wheezing Neurological/Psych: Oriented x3, Normal Speech <Jesica Cevallos - Last Filed: 06/30/18 19:36> ED Course And Treatment - Laboratory Results Result Diagrams: 06/30/18 15:50 06/30/18 15:50 O2 Sat by Pulse Oximetry: 100 (RA) Pulse Ox Interpretation: Normal <Jesica Cevallos - Last Filed: 06/30/18 19:36> - Laboratory Results Result Diagrams: 06/30/18 15:50 06/30/18 15:50 Lab Results: Total Bilirubin 0.4 mg/dL (0.2-1.3) 06/30/18 15:50 AST 39 U/L (14-36) H D 06/30/18 15:50 ALT 37 U/L (9-52) 06/30/18 15:50 Alkaline Phosphatase 62 U/L (38-126) 06/30/18 15:50 Total Protein 6.6 g/dL (6.3-8.3) 06/30/18 15:50 Albumin 4.0 g/dL (3.5-5.0) 06/30/18 15:50 Globulin 2.7 gm/dL (2.2-3.9) 06/30/18 15:50 Albumin/Globulin Ratio 1.5 (1.0-2.1) 06/30/18 15:50 Urine Color Yellow (YELLOW) 06/30/18 15:50 Urine Clarity Clear (Clear) 06/30/18 15:50 Urine pH 8.0 (5.0-8.0) 06/30/18 15:50 Ur Specific [place] 1.011 (1.003-1.030) 06/30/18 15:50 Urine Protein Negative mg/dL (NEGATIVE) 06/30/18 15:50 Urine Glucose (UA) Normal mg/dL (Normal) 06/30/18 15:50 Urine Ketones Negative mg/dL (NEGATIVE) 06/30/18 15:50 Urine Blood Negative (NEGATIVE) 06/30/18 15:50 Urine Nitrate Negative (NEGATIVE) 06/30/18 15:50 Urine Bilirubin Negative (NEGATIVE) 06/30/18 15:50 Urine Urobilinogen 2.0 mg/dL (0.2-1.0) H 06/30/18 15:50 Ur Leukocyte Esterase Neg Leif/uL (Negative) 06/30/18 15:50 Urine WBC (Auto) 1 /hpf (0-5) 06/30/18 15:50 Urine RBC (Auto) 4 /hpf (0-3) H 06/30/18 15:50 Ur Squamous Epith Cells 10 /hpf (0-5) H 06/30/18 15:50 <Jorge Luis Del Valle - Last Filed: 06/30/18 20:34> Medical Decision Making Medical Decision Making: Plans: -- chem labs -- blood work -- POC test -- UA @1650 pt is medically cleared for crisis placement <Jesica Cevallos - Last Filed: 06/30/18 19:36> Disposition <Jesica Cevallos - Last Filed: 06/30/18 19:36> Discussed With .: Prateek Gavin Comment: accepted the patient on his service and took over the care at 8:31 PM Doctor Will See Patient In The: Hospital Counseled Patient/Family Regarding: Studies Performed, Diagnosis - Disposition Disposition Time: 19:00 - POA Present On Arrival: Poor Glycemic Control <Jorge Luis Del Valle - Last Filed: 06/30/18 20:34> - Disposition Disposition: HOSPITALIZED Condition: FAIR Forms: [facility] (Ukrainian) - Clinical Impression 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 I have reviewed the chart and agree that the record accurately reflects my personal performance of the history, physical exam, medical decision making, and the department course for this patient. I have also personally directed, reviewed, and agree with the discharge instructions and disposition. <Jesica Cevallos - Last Filed: 06/30/18 19:36> Physician Patient Turnover Patient Signed Over To: Jorge Luis Del Valle (Pending crisis eval/dispo) <Jesica Cevallos - Last Filed: 06/30/18 19:36> Decision To Admit <Jesica Cevallos - Last Filed: 06/30/18 19:36> - Pt Status Changed To: Hospital Disposition Of: Inpatient - Admit Certification Admit to Inpatient:: After my assessment, the patient will require hospitalization for at least two midnights. This is because of the severity of symptoms shown, intensity of services needed, and/or the medical risk in this patient being treated as an outpatient. - InPatient: Physician Admission Certification: I certify that this patient requires 2 or more midnights of care for the following reason:: After my assessment, the patient will require hospitalization for at least two midnights. This is bec ause of the severity of symptoms shown, intensity of services needed, and/or the medical risk in this patient being treated as an outpatient. - . Bed Request Type: Psychiatry Admitting Physician: Prateek Gavin <Jorge Luis Del Valle - Last Filed: 06/30/18 20:34> - . Patient Diagnosis: Substance or medication-induced depressive disorder
[2018-06-30 15:56] LABS: BASO % 0.3 % (0.0-2.0); EOS % 0.2 % (0.0-4.0); HEMOGLOBIN 12.8 g/dL (11.0-16.0); LYMPH # 1.3 K/uL (1.0-4.3); MEAN CELL VOLUME 91.5 fL (81.0-99.0); MEAN CORPUSCULAR HEMOGLOBIN 29.1 pg (27.0-31.0); MEAN CORPUSCULAR HGB CONC 31.8 g/dL (33.0-37.0); MEAN PLATELET VOLUME 10.3 fL (7.2-11.7); MONO # 0.2 K/uL (0.0-0.8); MONO % 3.3 % (0.0-10.0); NEUT # 5.3 K/uL (1.8-7.0); NEUT % 77.2 % (50.0-75.0); RBC 4.41 Mil/uL (3.80-5.20); RED CELL DISTRIBUTION WIDTH 16.8 % (11.5-14.5); WHITE BLOOD COUNT 6.8 K/uL (4.8-10.8)
[2018-06-30 15:59] LABS: SQUAMOUS EPITHIAL 10 /hpf (0-5); URINE BILIRUBIN NEGATIVE (NEGATIVE); URINE BLOOD NEGATIVE (NEGATIVE); URINE CLARITY Clear (Clear); URINE COLOR Yellow (YELLOW); URINE GLUCOSE (UA) NORMAL (Normal); URINE LEUKOCYTE ESTERASE NEG Leu/uL (Negative); URINE PROTEIN NEGATIVE (NEGATIVE)
[2018-06-30 16:35] LABS: ALB/GLOB RATIO 1.5 (1.0-2.1); ALT/SGPT 37 U/L (9-52); AST/SGOT 39 U/L (14-36); BLOOD UREA NITROGEN 11 mg/dL (7-17); CALCIUM 8.8 mg/dl (8.6-10.4); GFR NON-AFRICAN AMERICAN > 60
[2018-06-30 16:44] LABS: BARBITURATES, UR NEGATIVE (NEGATIVE); BENZODIAZEPINES, UR NEGATIVE (NEGATIVE); PHENCYCLIDINE, UR NEGATIVE (NEGATIVE)
[2018-06-30 16:46] LABS: OPIATES, UR POSITIVE (NEGATIVE)
[2018-06-30 19:36] VITALS: O2SAT 100
--- NOTE | 2018-06-30 22:11 | PCM.BM ---
<Izaiah Ramsay - Last Filed: 06/30/18 22:09> Treatment Plan Problems - Problems identified on initial assessmt Suicidal Behaviors Date Initiated: 06/30/18 Time Initiated: 21:10 Assessment reference: NA Status: Active Opiates abuse Date Initiated: 06/30/18 Time Initiated: 21:10 Assessment reference: NA Status: Active Treatment assets and liabiliti Patient Assests: cooperative, ADL independent, negotiates basic needs, cognitively intact Patient Liabilities: financial problems, substance abuse (Opiates, cocaine) - Milieu Protocol Maintain good personal hygiene: daily Encourage regular showers, daily Remind patient to perform daily oral care, every shift Assist patient to perform ADL's Conduct patient checks and document Observation sheet: Q15 minutes Maintain personal safety: every shift Educate patient to report safety concerns to staff, every shift Monitor environment for contraband/sharps Medication safety: Monitor for expected outcome, potential side effects: every shift, Assess barriers to learning: every shift, Assess readiness for medication education: every shift <Olesya Pacheco - Last Filed: 07/01/18 12:26> Family Contact Family involvement: Famliy/SO not involved - Goals for Treatment Patient goals for treatment: "I don't know." Discharge/Continuing Care - Education Needs Education Needs: Patient Medication, Patient Coping Skills, Patient Placement options, Patient Community resources - Discharge Discharge Criteria: Tolerates medication w/o severe side effects, No longer exhibiting s/s of withdrawal, Reduction of target symptoms Discharge to:: Long Term - Treatment Team Participation Discussed with Family/SO: No Was Patient/Family/SO present at Treatment Team Meeting: Yes
[2018-07-01] MEDS ORDERED: Aluminum Hydroxide/Magnesium Hydroxide Susp (30 mL) PO PRN (10:05)
--- NOTE | 2018-07-01 10:09 | PCM.PSYCH ---
Initial Psychiatric Evaluation - Initial Psychiatric Evaluation Type of Admission: Voluntary Legal Status: Capacity Chief Complaint (in patient's own words): I was feeling down and depressed & suicidal History of Present Illness and Precipitating Events: Patient is a 53 year old female that reported to the ER with Suicidal ideation with a plan of overdosing. Patient reports a 20 (twenty) year history of substance Abuse, her drug of [facility] e is Heroin, but has used other substances such as Alcohol, Marijuana, Cocaine and Xanax. Patient is currently homeless and has no family support system. She reports history of few inpatient psychiatric hospitalizations. She was last discharged from [facility] 5 E. as per the patient soon after discharge from the hospital she relapsed on heroin and cocaine. She reports of abusing heroin 8-10 bags a day, along with cocaine 1 bag a day, and nicotine: pack a day. Patient stated that I feel depress and I want to Kill myself. Patient stated that she has a STD: Gonorrhea and is not receiving any treatment currently. She reports depressed mood, at times feelings of hopelessness and helplessness, poor sleep and poor appetite. She also reports that irritability, & agitation and racing thoughts. However she denies any auditory hallucinations or any paranoia. She reports withdrawal symptoms for heroin including nausea, vomiting, diarrhea, cramps, joint pains and sweating. Past medical history None reported Current Medications: Active Medications Generic Name Dose Route Start Last Admin Trade Name Freq PRN Reason Stop Dose Admin Al Hydrox/Mg Hydrox/Simethicone 30 ml 07/01/18 10:05 Maalox 30 Ml PO TID PRN Indigestion / Heartburn Citalopram Hydrobromide 40 mg 07/01/18 10:00 Celexa PO DAILY RITO Gabapentin 300 mg 07/01/18 10:06 Neurontin PO TID RITO Loperamide HCl 2 mg 07/01/18 10:05 Imodium PO Q8 PRN Diarrhea Methadone HCl 0 mg 07/01/18 10:15 Methadone PO 07/05/18 10:14 Q24H RITO Taper Mirtazapine 15 mg 06/30/18 22:00 06/30/18 22:24 Remeron PO 15 mg HS RITO Administration Ondansetron HCl 4 mg 07/01/18 10:05 Zofran Tab PO Q8 PRN Nausea/Vomiting Pneumococcal Polyvalent Vaccine 0.5 ml 07/03/18 10:00 Pneumovax 23 Vaccine IM 07/03/18 10:01 .ONCE ONE Pseudoephedrine HCl 60 mg 07/01/18 10:05 Sudafed Tab PO QID PRN Nasal/Sinus Congestion Past Psychiatric History - Past Psychiatric History Previous Treatment History: Inpatient Pertinent Medical Hx (Current Medical&Sleep Prob, Allergies): Allergies Allergy/AdvReac Type Severity Reaction Status Date / Time No Known Allergies Allergy Verified 06/30/18 15:01 Unobtainable 12/05/17 Review of Systems - Review of Systems All systems: reviewed and no additional remarkable complaints except - Psychiatric Psychiatric: Anxiety, Behavioral Changes, Irritability, Mood Swings, Suicidal Ideation Mental Status Examination - Personal Presentation Personal Presentation: Looks stated age - Affect Affect: Broad - Motor Activity Motor Activity: Psychomotor Agitation - Reliability in Providing Information Reliability in Providing Information: Poor, due to alteration in thoughts - Speech Speech: Disorganized - Mood Mood: Depressed, Anxious - Formal Thought Process Formal Thought Process: No Impairment, Hallucinations, Delusions, Paranoia, Loosening of associations - Obsessions/Compulsions Obsessions: No Compulsions: No - Cognitive Functions Orientation: Person, Place, Situation, Time Sensorium: Alert Attention/Concentration: Attentive Abstract Thinking: [place] Estimate of Intelligence: Below average Judgement: Imparied, as evidence by: Poor judgement, Imparied, as evidence by: Lack of insight into illness - Risk Risk: Suicidal, Withdrawal, Diminished functioning - Limitations Limitations: Living alone DSM 5 DX - DSM 5 DSM 5 Diagnosis: Major depressive disorder recurrent severe without psychotic features Opioid use disorder severe Opioid withdrawal Cocaine use disorder severe - Recommended/Plan of Treatment Treatment Recommendations and Plan of Treatment: Major depressive disorder recurrent severe without psychotic features Opioid use disorder severe Opioid withdrawal Cocaine use disorder severe Psychoeducation Supportive therapy and group therapy Methadone taper Hydroxyzine for anxiety Neurontin for medication Celexa for depression Depakote for/as a mood disorder - Smoking Cessation Smoking Cessation Initiated: No
[2018-07-01] MEDS: Divalproex 250 mg DR Tab PO SCH ×2 (12:52→18:09)
[2018-07-02] MEDS: Divalproex 250 mg DR Tab PO SCH ×2 (09:49→17:57)
--- NOTE | 2018-07-02 10:19 | PCM.PYCHPN ---
Psychiatric Progress Note - Psychiatric Progress Note Patient seen today, length of contact: 15 min Patient Chief Complaint: I was feeling down and depressed & suicidal Problems Identified/Issues Discussed: Patient was seen and evaluated, chart reviewed and discussed with the staff. As per staff she remained isolative and withdrawn. She still appears depressed. She still reports feelings of hopelessness and helplessness. She still reports withdrawal symptoms including nausea, aches, abdominal pain, joint pains and anxiety. Staff notes that she remained irritable and agitated However she denies any auditory or visual hallucinations. She is taking medication but denies any side effects. Symptoms are improving gradually but she needs to stay longer for further stabilization. Supportive therapy was given Medication Change: Yes Medical Record Reviewed: Yes Mental Status Examination - Cognitive Function Orientation: Person, Place, Situation, Time Memory: Intact Attention: WNL Concentration: Poor Association: WNL Fund of Knowledge: Poor - Mood Mood: Depressed, Anxious - Affect Affect: Broad - Speech Speech: Soft - Formal Thought Process Formal Thought Process: No Impairment, Hallucinations, Delusions, Paranoia, Loosening of associations - Suicidal Ideation Suicidal Ideation: No - Homicidal Ideation Homicidal Ideation: No Goal/Treatment Plan - Goal/Treatment Plan Need for Continued Stay: Remain at risks for inpatient hospitalization, Severe functional impairment Progress Toward Problem(s) and Goals/Treatment Plan: Major depressive disorder recurrent severe without psychotic features Opioid use disorder severe Opioid withdrawal Cocaine use disorder severe Psychoeducation Supportive therapy and group therapy Methadone taper Hydroxyzine for anxiety Neurontin for medication Celexa for depression Depakote for/as a mood disorder
[2018-07-03 09:11] VITALS: RESP 20
[2018-07-03] MEDS: Divalproex 250 mg DR Tab PO SCH ×2 (09:59→17:30)
[2018-07-03] MEDS ORDERED: Pneumococcal 23-Valent Vaccine IM ONE (10:00)
--- NOTE | 2018-07-03 10:06 | PCM.PYCHPN ---
Psychiatric Progress Note - Psychiatric Progress Note Patient seen today, length of contact: 15 min Patient Chief Complaint: I m feeling little better Problems Identified/Issues Discussed: Patient was seen and evaluated, chart reviewed and discussed with the staff. Per staff she is less irritable and less agitated than yesterday. Pt reports some improvement in her mood and reports some improvement in her feelings of hopelessness and helplessness. She reports some improvement in her withdrawal symptoms. However she denies any auditory or visual hallucinations. She is taking medication but denies any side effects. Symptoms are improving gradually but she needs to stay longer for further stabilization. Supportive therapy was given Medication Change: Yes Medical Record Reviewed: Yes Mental Status Examination - Cognitive Function Orientation: Person, Place, Situation, Time Memory: Intact Attention: WNL Concentration: Poor Association: WNL Fund of Knowledge: Poor - Mood Mood: Depressed, Anxious - Affect Affect: Broad - Speech Speech: Soft - Formal Thought Process Formal Thought Process: No Impairment - Suicidal Ideation Suicidal Ideation: No - Homicidal Ideation Homicidal Ideation: No Goal/Treatment Plan - Goal/Treatment Plan Need for Continued Stay: Remain at risks for inpatient hospitalization, Severe functional impairment Progress Toward Problem(s) and Goals/Treatment Plan: Major depressive disorder recurrent severe without psychotic features Opioid use disorder severe Opioid withdrawal Cocaine use disorder severe Psychoeducation Supportive therapy and group therapy Methadone taper Hydroxyzine for anxiety Neurontin for medication Celexa for depression Depakote for/as a mood disorder - Smoking Cessation Smoking Cessation Initiated: No
[2018-07-04] MEDS: Divalproex 250 mg DR Tab PO SCH ×2 (10:21→17:34)
--- NOTE | 2018-07-04 22:04 | PCM.PYCHPN ---
Psychiatric Progress Note - Psychiatric Progress Note Patient seen today, length of contact: 15 min Problems Identified/Issues Discussed: Patient seen, chart reviewed, case discussed with the staff. Issues related to illness and treatment were discussed with the patient and staff. Reported compliant with treatment with no adverse effects. Tolerating treatment very well. Reported feeling better with the treatment. Mood reported as depressed. Affect inappropriate, appeared normal. Calm and cooperative. Awake, alert and oriented x3. Aftercare discussed with the patient. Denied any delusions, auditory or visual hallucinations, suicidal ideations or homicidal ideations at the time of evaluation. Medical Problems: None reported Diagnostic Results: Reviewed DSM 5 Symptoms Update: Some improvement with treatment Medication Change: No Medical Record Reviewed: Yes Mental Status Examination - Cognitive Function Orientation: Person, Place, Situation, Time Memory: Intact Attention: WNL Concentration: WNL Association: [facility] Fund of Knowledge: [facility] Decription of patient's judgement and insights: Fair - Mood Mood: Depressed - Affect Affect: Other (Appears neutral) - Speech Speech: Soft - Formal Thought Process Formal Thought Process: No Impairment Psychotic Thoughts and Behaviors: None - Suicidal Ideation Suicidal Ideation: No - Homicidal Ideation Homicidal Ideation: No Goal/Treatment Plan - Goal/Treatment Plan Need for Continued Stay: Remain at risks for inpatient hospitalization, Discharge may exacerbated symptoms, Severe functional impairment Progress Toward Problem(s) and Goals/Treatment Plan: Some improvement with treatment. Patient education. Supportive therapy. Continue treatment as before. Estimated Date of D/C: 07/07/18 - Smoking Cessation Smoking Cessation Initiated: No
[2018-07-05] MEDS: Divalproex 250 mg DR Tab PO SCH ×2 (09:46→17:38)
[2018-07-06] MEDS: Divalproex 250 mg DR Tab PO SCH ×2 (10:09→17:14)
--- NOTE | 2018-07-06 15:08 | PCM.PYCHPN ---
Psychiatric Progress Note - Psychiatric Progress Note Patient seen today, length of contact: 15 min Patient Chief Complaint: I was feeling down and depressed & suicidal Problems Identified/Issues Discussed: Patient was seen and evaluated, chart reviewed and discussed with the staff. Pt reports some improvement in her mood and reports some improvement in her feelings of hopelessness and helplessness. She reports some improvement in her withdrawal symptoms. However she denies any auditory or visual hallucinations. She is taking medication but denies any side effects. Symptoms are improving gradually but she needs to stay longer for further stabilization. Supportive therapy was given Medication Change: No Medical Record Reviewed: Yes Mental Status Examination - Cognitive Function Orientation: Person, Place, Situation, Time Memory: Intact Attention: WNL Concentration: Poor Association: WNL Fund of Knowledge: Poor - Mood Mood: Depressed - Affect Affect: Other (Appears neutral) - Speech Speech: Soft - Formal Thought Process Formal Thought Process: No Impairment - Suicidal Ideation Suicidal Ideation: No - Homicidal Ideation Homicidal Ideation: No Goal/Treatment Plan - Goal/Treatment Plan Need for Continued Stay: Remain at risks for inpatient hospitalization, Discharge may exacerbated symptoms, Severe functional impairment Progress Toward Problem(s) and Goals/Treatment Plan: Major depressive disorder recurrent severe without psychotic features Opioid use disorder severe Opioid withdrawal Cocaine use disorder severe Psychoeducation Supportive therapy and group therapy Methadone taper Hydroxyzine for anxiety Neurontin for medication Celexa for depression Depakote for/as a mood disorder Estimated Date of D/C: 07/07/18
[2018-07-07 09:40] VITALS: BP 102/67; PULSE 70; TEMP 97.6
[2018-07-07] MEDS: Divalproex 250 mg DR Tab PO SCH (09:53)
--- NOTE | 2018-07-07 10:50 | PCM.PYCHDC ---
Mental Status Examination - Mental Status Examination Orientation: Person, Place, Situation, Time Memory: Impaired Mood: Neutral Affect: Constricted Speech: Soft Attention: WNL Concentration: WNL Association: WNL Fund of Knowledge: WNL Formal Thought Process: No Impairment Description of patient's judgement and insight: good, fair Psychotic Thoughts and Behaviors: denies any AVH Suicidal Ideation: No Current Homicidal Ideation?: No Discharge Summary - Discharge Note Reason for Hospitalization: Patient is a 53 year old female that reported to the ER with Suicidal ideation with a plan of overdosing. Patient reports a 20 (twenty) year history of substance Abuse, her drug of Choice is Heroin, but has used other substances such as Alcohol, Marijuana, Cocaine and Xanax. Patient is currently homeless and has no family support system. She reports history of few inpatient psychiatric hospitalizations. She was last discharged from [facility] E. as per the patient soon after discharge from the hospital she relapsed on heroin and cocaine. She reports of abusing heroin 8-10 bags a day, along with cocaine 1 bag a day, and nicotine: pack a day. Patient stated that I feel depress and I want to Kill myself. Patient stated that she has a STD: Gonorrhea and is not receiving any treatment currently. She reports depressed mood, at times feelings of hopelessness and helplessness, poor sleep and poor appetite. She also reports that irritability, & agitation and racing thoughts. However she denies any auditory hallucinations or any paranoia. She reports withdrawal symptoms for heroin including nausea, vomiting, diarrhea, cramps, joint pains and sweating. Consultations:: List each consultation separately and include: 1. Reason for request. 2. Findings. 3. Follow-up Summary of Hospital Course include:: 1. Description of specific treatment plan utilized for patients during their course of treatmen. 2. Summarize the time- course for resolution of acute symptoms and/or regressed behaviors. 3. Describe issues identified and worked on during hospitalization. 4. Describe medication utilized. 5. Describe medical problems identified and treated. 6. Reassessment of suicide risk Summary of Hospital Course: During the course of her stay, patient (pt) started progressively improving and she no longer remained irritable, anxious and depressed. Her mood and anxiety were improved and she started attending groups and meetings and started socializing. Patient denied any feelings of hopelessness, helplessness, and worthlessness, denied any problem with the sleep or appetite, denied suicidal ideation or homicidal ideation. Pt denied any auditory or visual hallucinations. Some changes were made in her current medications and patient was discharged on following medications. She tolerated these medications very well and denied any side effects. - Final Diagnosis (DSM 5) Condition upon Discharge: FAIR DSM 5: Major depressive disorder recurrent severe without psychotic features Opioid use disorder severe Opioid withdrawal Cocaine use disorder severe Disposition: HOME/ ROUTINE Follow-up Treatment Plan: A/P: Pt was discharged to the [facility] Education: Pt was educated and counseled about the risks and benefits of taking and not taking medications. Pt was educated and counseled about the risks of drinking and abusing drugs. Pt was educated and counseled to go to the ER or call 911 if pt develop suicidal ideation or homicidal ideation, worsening of symptoms or severe side effects of the meds. Prescriptions/Medication Reconciliation: Citalopram [celEXA] 40 mg PO DAILY #30 tab Divalproex [Depakote DR] 250 mg PO BID #60 tcp Gabapentin [Neurontin] 300 mg PO TID #90 cap Mirtazapine [Remeron] 30 mg PO HS #30 tab - Smoking Cessation Smoking Cessation Medication prescribed: No - Antipsychotic Medications Pt discharged on 2 or more routine antipsychotic medications: No
== END 2018-07-07 11:28 | disposition home or self-care (01) | DRG 430 ==
LOC: C.ER 14:31 → C.9E 20:30 → C.5E 20:41
PROC: GZHZZZZ Group Psychotherapy (ICD-10-PCS; principal; 2018-06-30)
PROC: GZ56ZZZ Individual Psychotherapy, Supportive (ICD-10-PCS; 2018-06-30)
DX: F33.2 Major depressive disorder, recurrent severe without psychotic features (principal); F11.23 Opioid dependence with withdrawal; F14.10 Cocaine abuse, uncomplicated; F41.9 Anxiety disorder, unspecified; R45.851 Suicidal ideations; Z59.0 Homelessness; Z87.891 Personal history of nicotine dependence

== ENCOUNTER 2018-09-25 12:05 | Inpatient (IN) | payer MEDICAID, OTHER ==
[2018-09-25 12:15] VITALS: BMI 23.8
--- NOTE | 2018-09-25 13:07 | C.PDOC ---
History Of Present Illness 53 y/o female pt presents to the ER c/o feeling suicidal these past few weeks. Pt reports she was about to overdose on ambien but her friend knocked the medication out of her hand. Pt also reports she has been using heroin these past few weeks and last use was this morning. Pt notes she was clean for x6 months until she relapsed this month. Pt also notes she smokes a pack of cigarettes a day. Pt denies HI, auditory or visual hallucinations. Pt also claims that she used to be on celexa for depression but she does not take it anymore. Time Seen by Provider: 09/25/18 12:16 Chief Complaint (Nursing): Psychiatric Evaluation History Per: Patient History/Exam Limitations: no limitations Onset/Duration Of Symptoms: Days Current Symptoms Are (Timing): Still Present Suicide/Self Injury Attempted (Context): Ingestion Modifying Factor(s): Other (heroin ) Past Medical History Reviewed: Historical Data, Nursing Documentation, Vital Signs Vital Signs: Last Vital Signs Temp 98 F 09/25/18 12:10 Pulse 82 09/25/18 12:10 Resp 18 09/25/18 12:10 BP 106/68 09/25/18 12:10 Pulse Ox 100 09/25/18 12:10 - Medical History PMH: Depression, Sexually Transmitted Disease (Patient amitted to having Gonorrhea) Surgical History: Appendectomy - [facility] DETOXIFICATION SERVICES FOR SUBSTANCE ABUSE TREATMENT (10/12/17) DRUG DETOXIFICATION (07/27/14) GROUP COMMUNITY AFFAIRS MANAGER FOR SUBSTANCE ABUSE TREATMENT, PSYCHOEDUCATION (10/12/17) GROUP COMMUNITY AFFAIRS MANAGER FOR SUBSTANCE ABUSE, COGNITIVE BEHAVIORAL (10/12/17) GROUP PSYCHOTHERAPY (06/30/18) INDIV PSYCHOTHERAPY FOR SUBSTANCE ABUSE TREATMENT, SUPPORT (10/12/17) INDIV PSYCHOTHERAPY FOR SUBSTANCE ABUSE, COGNITIV BEHAVIORAL (10/12/17) INDIV PSYCHOTHERAPY FOR SUBSTANCE ABUSE, PSYCHOEDUCATION (10/12/17) INDIVIDUAL PSYCHOTHERAPY, COGNITIVE-BEHAVIORAL (10/12/17) INDIVIDUAL PSYCHOTHERAPY, SUPPORTIVE (06/30/18) OTHER APPENDECTOMY (04/21/97) OTHER GROUP THERAPY (07/27/14) Family History: States: Unknown Family Hx - Social History Hx Tobacco Use: Yes Hx Alcohol Use: Yes Hx Substance Use: Yes (heroin) - Immunization History Hx Tetanus Toxoid Vaccination: No Hx Influenza Vaccination: No Hx Pneumococcal Vaccination: No Review Of Systems Constitutional: Negative for: Fever, Chills Cardiovascular: Negative for: Chest Pain, Palpitations Respiratory: Negative for: Cough, Shortness of Breath Gastrointestinal: Negative for: Nausea, Vomiting, Abdominal Pain, Diarrhea Genitourinary: Negative for: Dysuria, Hematuria Musculoskeletal: Negative for: Neck Pain, Back Pain Skin: Negative for: Rash Neurological: Negative for: Weakness, Numbness Psych: Positive for: Suicidal ideation. Negative for: Other (homicidal ideation; auditory or visual hallucination ) Physical Exam - Physical Exam Appears: Non-toxic, No Acute Distress, Other (tearful) Skin: Warm, Dry Head: Atraumatic, Normacephalic Eye(s): bilateral: Normal Inspection, PERRL, EOMI Chest: Symmetrical Cardiovascular: Rhythm Regular Respiratory: Normal Breath Sounds Gastrointestinal/Abdominal: Soft, No Tenderness Back: No CVA Tenderness Extremity: Normal ROM (x4) Neurological/Psych: Oriented x3, Normal Speech ED Course And Treatment - Laboratory Results Result Diagrams: 09/25/18 12:57 09/25/18 12:57 O2 Sat by Pulse Oximetry: 100 (RA) Pulse Ox Interpretation: Normal Medical Decision Making Medical Decision Making: plans: -- chem labs -- blood work Patient medically cleared (UTI noted, first dose of abx given), evaluated by crisis, admitted to detox unit under Dr. Arredondo. Disposition - Disposition Disposition: HOSPITALIZED Disposition Time: 14:30 Condition: STABLE Forms: [facility] ([place]) - Clinical Impression Clinical Impression: Opioid use disorder, severe, dependence, Depression with suicidal ideation, Narcotic addiction - Scribe Statement The provider has reviewed the documentation as recorded by the Ct Egan Do Provider Attestation: All medical record entries made by the Michelleibdayday were at my direction and personally dictated by me. I have reviewed the chart and agree that the record accurately reflects my personal performance of the history, physical exam, medical decision making, and the department course for this patient. I have also personally directed, reviewed, and agree with the discharge instructions and disposition.
[2018-09-25 13:10] LABS: BASO % 0.2 % (0.0-2.0); HEMOGLOBIN 13.3 g/dL (11.0-16.0); LYMPH # 0.9 K/uL (1.0-4.3); LYMPH % 7.7 % (20.0-40.0); MEAN CORPUSCULAR HEMOGLOBIN 29.1 pg (27.0-31.0); MEAN CORPUSCULAR HGB CONC 32.8 g/dL (33.0-37.0); MEAN PLATELET VOLUME 10.7 fL (7.2-11.7); MONO # 1.2 K/uL (0.0-0.8); MONO % 10.3 % (0.0-10.0); NEUT # 9.5 K/uL (1.8-7.0); NEUT % 81.8 % (50.0-75.0); RBC 4.57 Mil/uL (3.80-5.20)
[2018-09-25 13:15] LABS: MEAN CELL VOLUME 88.7 fL (81.0-99.0); PLATELET COUNT 113 K/uL (130-400); WHITE BLOOD COUNT 11.6 K/uL (4.8-10.8)
[2018-09-25 13:16] LABS: ALB/GLOB RATIO 1.4 (1.0-2.1); ALBUMIN 3.8 g/dL (3.5-5.0); ALT/SGPT 82 U/L (9-52); AST/SGOT 115 U/L (14-36); BLOOD UREA NITROGEN 12 mg/dL (7-17); CALCIUM 8.6 mg/dl (8.6-10.4); GFR NON-AFRICAN AMERICAN > 60
[2018-09-25 13:47] LABS: SQUAMOUS EPITHIAL 1 /hpf (0-5); URINE BACTERIA MANY (<OCC); URINE BILIRUBIN NEGATIVE (NEGATIVE); URINE BLOOD 2+ (NEGATIVE); URINE CLARITY Hazy (Clear); URINE COLOR Yellow (YELLOW); URINE GLUCOSE (UA) NORMAL (Normal); URINE LEUKOCYTE ESTERASE 3+ Leu/uL (Negative); URINE PROTEIN NEGATIVE (NEGATIVE); WBC CLUMPS FEW /hpf
[2018-09-25 14:01] LABS: BARBITURATES, UR NEGATIVE (NEGATIVE); BENZODIAZEPINES, UR NEGATIVE (NEGATIVE); PHENCYCLIDINE, UR NEGATIVE (NEGATIVE)
[2018-09-25 14:04] LABS: ANISOCYTOSIS SLIGHT; BANDS 4 % (0-2); LYMPHOCYTE 7 % (20-40); MONOCYTE 10 % (0-10); NEUTROPHIL 78 % (50-75); PLATELET ESTIMATE SLIGHTLY DECREASED (NORMAL); REACTIVE LYMPHOCYTES 1 % (0-0); TOTAL CELLS COUNTED 100
[2018-09-25 14:27] LABS: OPIATES, UR POSITIVE (NEGATIVE)
--- NOTE | 2018-09-25 14:59 | PCM.BM ---
Treatment Plan Problems - Problems identified on initial assessmt denial Date Initiated: 09/25/18 Time Initiated: 14:57 defensive coping Date Initiated: 09/25/18 Time Initiated: 14:58 chronic low self esteem Date Initiated: 09/25/18 Time Initiated: 14:59 Assessment reference: NA Status: Active Treatment assets and liabiliti Patient Assests: cooperative, ADL independent, negotiates basic needs, cognitively intact Patient Liabilities: substance abuse, medical problems - Milieu Protocol Maintain good personal hygiene: daily Encourage regular showers, daily Remind patient to perform daily oral care, daily Assist patient to perform ADL's Conduct patient checks and document Observation sheet: Q15 minutes Maintain personal safety: every shift Educate patient to report safety concerns to staff, every shift Monitor environment for contraband/sharps Medication safety: Monitor for expected outcome, potential side effects: every shift, Assess barriers to learning: every shift, Assess readiness for medication education: every shift
[2018-09-25] MEDS ORDERED: Aluminum Hydroxide/Magnesium Hydroxide Susp (30 mL) PO PRN (17:19)
--- NOTE | 2018-09-26 02:00 | CP.PCM.CON ---
<Sherri Woods - Last Filed: 09/26/18 02:04> History of Present Illness - History of Present Illness History of Present Illness: Medicine Consult Note for Dr. Moreno's service CC: fever HPI: 53 yo female w/ PMH of sciatica and polysubstance abuse admitted to hospital for detox. Patient states that she last used heroin earlier today. Patient was minimally cooperative with exam as she requested to go back to sleep because she was going through withdrawal. Patient said that her fever had subsided during interview likely 2/2 to recent Tylenol administered. Patient denies any urinary symptoms however the urinalysis suggests otherwise. Patient had no specific complaints related to the fever. Patient just stated multiple times she wanted to go to sleep because she was going through withdrawal. Admits to fevers and leg pain. Denies cp, sob, n/v, constipation or diarrhea, and dysuria or any other urinary symptoms PMH: sciatica, polysubstance abuse PSH: patient requested to go to sleep FH: patient requested to go to sleep Meds: see MAR Allergies: NKDA Review of Systems - Review of Systems All systems: reviewed and no additional remarkable complaints except Review of Systems: see hpi Past Patient History - Infectious Disease Hx of Infectious Diseases: None - Tetanus Immunizations Tetanus Immunization: Up to Date - Past Medical History & Family History Past Medical History?: Yes - Past Social History Smoking Status: Heavy Smoker > 10 Cigarettes Daily - CARDIAC Hx Hypertension: No - PULMONARY Hx Tuberculosis: No - NEUROLOGICAL Hx Seizures: No - RENAL Other/Comment: std ,gonorrhea - HEMATOLOGICAL/ONCOLOGICAL Hx Human Immunodeficiency Virus (HIV): No - INTEGUMENTARY Hx Dermatological Problems: No - MUSCULOSKELETAL/RHEUMATOLOGICAL Hx Musculoskeletal Disorders: Yes Hx Falls: No Other/Comment: SCIATICA - GENITOURINARY/GYNECOLOGICAL Hx Sexually Transmitted Disorders: Yes (Patient amitted to having Gonorrhea) Hx Urinary Tract Infection: Yes - PSYCHIATRIC Hx Substance Use: Yes - SURGICAL HISTORY Hx Appendectomy: Yes Hx Section: Yes - ANESTHESIA Hx Anesthesia: Yes Hx Anesthesia Reactions: No Meds Allergies/Adverse Reactions: Allergies Allergy/AdvReac Type Severity Reaction Status Date / Time No Known Allergies Allergy Verified 09/25/18 12:08 - Medications Medications: Current Medications Acetaminophen (Tylenol 325mg Tab) 650 mg PO Q8 PRN PRN Reason: fever Last Admin: 09/25/18 19:10 Dose: 650 mg Acetaminophen (Tylenol 325mg Tab) 650 mg PO Q6 PRN PRN Reason: Agitation Al Hydrox/Mg Hydrox/Simethicone (Maalox 30 Ml) 30 ml PO TID PRN PRN Reason: Indigestion / Heartburn Clonidine HCl (Catapres) 0.1 mg PO Q4 PRN PRN Reason: COWS Score More or Equal to 5 Ibuprofen (Motrin Tab) 600 mg PO Q6 PRN PRN Reason: Pain, moderate (4-7) Loperamide HCl (Imodium) 2 mg PO Q8 PRN PRN Reason: Diarrhea Lorazepam (Ativan) 1 mg PO Q6 PRN PRN Reason: Allergy symptoms Last Admin: 09/26/18 01:02 Dose: 1 mg Nitrofurantoin Macrocrystals (Macrobid) 100 mg PO Q12H RITO; Protocol Ondansetron HCl (Zofran Tab) 4 mg PO Q8 PRN PRN Reason: Nausea/Vomiting Physical Exam - Constitutional Appears: In Acute Distress, Agitated - Head Exam Head Exam: NORMAL INSPECTION, NORMOCEPHALIC - Eye Exam Eye Exam: EOMI, Normal appearance. absent: Nystagmus, Scleral icterus - ENT Exam ENT Exam: Mucous Membranes Dry - Respiratory Exam Respiratory Exam: Clear to Auscultation Bilateral, NORMAL BREATHING PATTERN. absent: Rhonchi, Wheezes - Cardiovascular Exam Cardiovascular Exam: REGULAR RHYTHM, +S1, +S2 - GI/Abdominal Exam GI & Abdominal Exam: Normal Bowel Sounds, Soft. absent: Tenderness - Extremities Exam Extremities exam: Positive for: normal inspection - Neurological Exam Neurological exam: Alert, Oriented x3 - Psychiatric Exam Psychiatric exam: Agitated, Anxious - Skin Skin Exam: Diaphoretic, Dry, Normal Color Results - Vital Signs Recent Vital Signs: Last Vital Signs Temp 98.9 F 09/25/18 20:52 Pulse 96 H 09/25/18 19:11 Resp 18 09/25/18 19:11 BP 117/78 09/25/18 19:11 Pulse Ox 99 09/25/18 19:11 - Labs Result Diagrams: 09/25/18 12:57 09/25/18 12:57 Labs: Laboratory Results - last 24 hr 09/25/18 09/25/18 09/25/18 12:57 12:57 13:37 WBC 11.6 H D RBC 4.57 Hgb 13.3 Hct 40.5 MCV 88.7 D MCH 29.1 MCHC 32.8 L RDW 15.0 H Plt Count 113 L D MPV 10.7 Neut % (Auto) 81.8 H Lymph % (Auto) 7.7 L [place] % (Auto) 10.3 H Eos % (Auto) 0.0 Baso % (Auto) 0.2 Neut # (Auto) 9.5 H Lymph # (Auto) 0.9 L [place] # (Auto) 1.2 H Eos # (Auto) 0.0 Baso # (Auto) 0.0 Neutrophils % (Manual) 78 H Band Neutrophils % 4 H Lymphocytes % (Manual) 7 L Reactive Lymphs % 1 H Monocytes % (Manual) 10 Platelet Estimate Slightly decreased L Anisocytosis (manual) Slight Sodium 135 Potassium 3.5 L Chloride 102 Carbon Dioxide 26 Anion Gap 11 BUN 12 Creatinine 0.7 Est GFR ( Amer) > 60 Est GFR (Non-Af Amer) > 60 Random Glucose 122 H Calcium 8.6 Phosphorus 2.8 Magnesium 1.9 Total Bilirubin 1.3 AST 115 H D ALT 82 H D Alkaline Phosphatase 72 Total Protein 6.4 Albumin 3.8 Globulin 2.7 Albumin/Globulin Ratio 1.4 Urine Color Yellow Urine Clarity Hazy Urine pH 5.0 Ur Specific [place] 1.009 Urine Protein Negative Urine Glucose (UA) Normal Urine Ketones Negative Urine Blood 2+ H Urine Nitrate Positive H Urine Bilirubin Negative Urine Urobilinogen 4.0 H Ur Leukocyte Esterase 3+ H Urine WBC (Auto) 652 H Urine RBC (Auto) 14 H Urine WBC Clumps (Auto) Few H Ur Squamous Epith Cells 1 Urine Bacteria Many H Urine Opiates Screen Urine Methadone Screen Ur Barbiturates Screen Ur Phencyclidine Scrn Ur Amphetamines Screen U Benzodiazepines Scrn U Oth Cocaine Metabols U Cannabinoids Screen Alcohol, Quantitative < 10 09/25/18 13:37 WBC RBC Hgb Hct MCV MCH MCHC RDW Plt Count MPV Neut % (Auto) Lymph % (Auto) [place] % (Auto) Eos % (Auto) Baso % (Auto) Neut # (Auto) Lymph # (Auto) [place] # (Auto) Eos # (Auto) Baso # (Auto) Neutrophils % (Manual) Band Neutrophils % Lymphocytes % (Manual) Reactive Lymphs % Monocytes % (Manual) Platelet Estimate Anisocytosis (manual) Sodium Potassium Chloride Carbon Dioxide Anion Gap BUN Creatinine Est GFR ( Amer) Est GFR (Non-Af Amer) Random Glucose Calcium Phosphorus Magnesium Total Bilirubin AST ALT Alkaline Phosphatase Total Protein Albumin Globulin Albumin/Globulin Ratio Urine Color Urine Clarity Urine pH Ur Specific [place] Urine Protein Urine Glucose (UA) Urine Ketones Urine Blood Urine Nitrate Urine Bilirubin Urine Urobilinogen Ur Leukocyte Esterase Urine WBC (Auto) Urine RBC (Auto) Urine WBC Clumps (Auto) Ur Squamous Epith Cells Urine Bacteria Urine Opiates Screen Positive H Urine Methadone Screen Negative Ur Barbiturates Screen Negative Ur Phencyclidine Scrn Negative Ur Amphetamines Screen Negative U Benzodiazepines Scrn Negative U Oth Cocaine Metabols Positive H U Cannabinoids Screen Negative Alcohol, Quantitative Assessment & Plan - Assessment and Plan (Free Text) Assessment: 53 yo female admitted to detox for polysubstance abuse Plan: Fever likely 2/2 related to UTI UA: positive nitrates, 3+ L.E Bcx pending, urine cx pending Ibuprofen q8h prn Trend CBC in AM Transaminitis Hep panel pending HIV pending Trend CMP in AM consider liver ultrasound if CMP trends upward or remains elevated Hypokalemia Kdur 20meq x 1 Polysubstance Abuse as per psych PGY-1 Sherri Woods Case d/w Dr. Moreno <Pradeep Moreno - Last Filed: 09/26/18 06:24> Meds - Medications Medications: Current Medications Al Hydrox/Mg Hydrox/Simethicone (Maalox 30 Ml) 30 ml PO TID PRN PRN Reason: Indigestion / Heartburn Clonidine HCl (Catapres) 0.1 mg PO Q4 PRN PRN Reason: COWS Score More or Equal to 5 Ibuprofen (Motrin Tab) 600 mg PO Q6 PRN PRN Reason: Pain, moderate (4-7) Last Admin: 09/26/18 02:17 Dose: 600 mg Loperamide HCl (Imodium) 2 mg PO Q8 PRN PRN Reason: Diarrhea Lorazepam (Ativan) 1 mg PO Q6 PRN PRN Reason: Allergy symptoms Last Admin: 09/26/18 01:02 Dose: 1 mg Nitrofurantoin Macrocrystals (Macrobid) 100 mg PO Q12H RITO; Protocol Last Admin: 09/26/18 02:16 Dose: 100 mg Ondansetron HCl (Zofran Tab) 4 mg PO Q8 PRN PRN Reason: Nausea/Vomiting Last Admin: 09/26/18 02:25 Dose: 4 mg Results - Vital Signs Recent Vital Signs: Last Vital Signs Temp 98.9 F 09/25/18 20:52 Pulse 96 H 09/25/18 19:11 Resp 18 09/25/18 19:11 BP 117/78 09/25/18 19:11 Pulse Ox 99 09/25/18 19:11 - Labs Result Diagrams: 09/25/18 12:57 09/25/18 12:57 Labs: Laboratory Results - last 24 hr 09/25/18 09/25/18 09/25/18 12:57 12:57 13:37 WBC 11.6 H D RBC 4.57 Hgb 13.3 Hct 40.5 MCV 88.7 D MCH 29.1 MCHC 32.8 L RDW 15.0 H Plt Count 113 L D MPV 10.7 Neut % (Auto) 81.8 H Lymph % (Auto) 7.7 L [place] % (Auto) 10.3 H Eos % (Auto) 0.0 Baso % (Auto) 0.2 Neut # (Auto) 9.5 H Lymph # (Auto) 0.9 L [place] # (Auto) 1.2 H Eos # (Auto) 0.0 Baso # (Auto) 0.0 Neutrophils % (Manual) 78 H Band Neutrophils % 4 H Lymphocytes % (Manual) 7 L Reactive Lymphs % 1 H Monocytes % (Manual) 10 Platelet Estimate Slightly decreased L Anisocytosis (manual) Slight Sodium 135 Potassium 3.5 L Chloride 102 Carbon Dioxide 26 Anion Gap 11 BUN 12 Creatinine 0.7 Est GFR ( Amer) > 60 Est GFR (Non-Af Amer) > 60 Random Glucose 122 H Calcium 8.6 Phosphorus 2.8 Magnesium 1.9 Total Bilirubin 1.3 AST 115 H D ALT 82 H D Alkaline Phosphatase 72 Total Protein 6.4 Albumin 3.8 Globulin 2.7 Albumin/Globulin Ratio 1.4 Urine Color Yellow Urine Clarity Hazy Urine pH 5.0 Ur Specific [place] 1.009 Urine Protein Negative Urine Glucose (UA) Normal Urine Ketones Negative Urine Blood 2+ H Urine Nitrate Positive H Urine Bilirubin Negative Urine Urobilinogen 4.0 H Ur Leukocyte Esterase 3+ H Urine WBC (Auto) 652 H Urine RBC (Auto) 14 H Urine WBC Clumps (Auto) Few H Ur Squamous Epith Cells 1 Urine Bacteria Many H Urine Opiates Screen Urine Methadone Screen Ur Barbiturates Screen Ur Phencyclidine Scrn Ur Amphetamines Screen U Benzodiazepines Scrn U Oth Cocaine Metabols U Cannabinoids Screen Alcohol, Quantitative < 10 09/25/18 13:37 WBC RBC Hgb Hct MCV MCH MCHC RDW Plt Count MPV Neut % (Auto) Lymph % (Auto) [place] % (Auto) Eos % (Auto) Baso % (Auto) Neut # (Auto) Lymph # (Auto) [place] # (Auto) Eos # (Auto) Baso # (Auto) Neutrophils % (Manual) Band Neutrophils % Lymphocytes % (Manual) Reactive Lymphs % Monocytes % (Manual) Platelet Estimate Anisocytosis (manual) Sodium Potassium Chloride Carbon Dioxide Anion Gap BUN Creatinine Est GFR ( Amer) Est GFR (Non-Af Amer) Random Glucose Calcium Phosphorus Magnesium Total Bilirubin AST ALT Alkaline Phosphatase Total Protein Albumin Globulin Albumin/Globulin Ratio Urine Color Urine Clarity Urine pH Ur Specific [place] Urine Protein Urine Glucose (UA) Urine Ketones Urine Blood Urine Nitrate Urine Bilirubin Urine Urobilinogen Ur Leukocyte Esterase Urine WBC (Auto) Urine RBC (Auto) Urine WBC Clumps (Auto) Ur Squamous Epith Cells Urine Bacteria Urine Opiates Screen Positive H Urine Methadone Screen Negative Ur Barbiturates Screen Negative Ur Phencyclidine Scrn Negative Ur Amphetamines Screen Negative U Benzodiazepines Scrn Negative U Oth Cocaine Metabols Positive H U Cannabinoids Screen Negative Alcohol, Quantitative Assessment & Plan - Date & Time Date: 09/26/18 (I have seen and examined the patient. I agree with the findings and plan of care as documented by Dr. Woods. Patient here for detox. Medicine consulted due to UTI and transaminitis. Check urine and blood cultures. Continue macrobid. Check hep and HIV status. Monitor for acute changes.) Time: 06:23 Attending/Attestation - Attestation I have personally seen and examined this patient.: Yes I have fully participated in the care of the patient.: Yes I have reviewed all pertinent clinical information: Yes
[2018-09-26] MEDS ORDERED: Potassium Chloride 20 mEq ER Tab PO ONE (02:03)
--- NOTE | 2018-09-26 08:08 | CP.PCM.PN ---
Subjective - Date & Time of Evaluation Date of Evaluation: 09/26/18 Time of Evaluation: 08:08 - Subjective Subjective: PGY-1 Lakshmi Wetzel D.O. Medicine progress note for Dr. Evans's service: Patient was seen and examined this morning. She is in bed under the covers. She says she does not feel well at all. She is not hungry. She feels cold. She denies dysuria or abdominal/pelvic pain. She says that her legs hurt. Objective - Vital Signs/Intake and Output Vital Signs (last 24 hours): Temp Pulse Resp BP Pulse Ox 99.5 F 74 20 106/67 95 09/26/18 06:00 09/26/18 06:00 09/26/18 06:00 09/26/18 06:00 09/26/18 06:00 - Medications Medications: Current Medications Al Hydrox/Mg Hydrox/Simethicone (Maalox 30 Ml) 30 ml PO TID PRN PRN Reason: Indigestion / Heartburn Clonidine HCl (Catapres) 0.1 mg PO Q4 PRN PRN Reason: COWS Score More or Equal to 5 Ibuprofen (Motrin Tab) 600 mg PO Q6 PRN PRN Reason: Pain, moderate (4-7) Last Admin: 09/26/18 02:17 Dose: 600 mg Loperamide HCl (Imodium) 2 mg PO Q8 PRN PRN Reason: Diarrhea Lorazepam (Ativan) 1 mg PO Q6 PRN PRN Reason: Allergy symptoms Last Admin: 09/26/18 01:02 Dose: 1 mg Nitrofurantoin Macrocrystals (Macrobid) 100 mg PO Q12H RITO; Protocol Last Admin: 09/26/18 02:16 Dose: 100 mg Ondansetron HCl (Zofran Tab) 4 mg PO Q8 PRN PRN Reason: Nausea/Vomiting Last Admin: 09/26/18 02:25 Dose: 4 mg - Labs Labs: 09/25/18 12:57 09/25/18 12:57 - Constitutional Appears: Non-toxic, No Acute Distress - Head Exam Head Exam: ATRAUMATIC, NORMAL INSPECTION - Eye Exam Eye Exam: EOMI, Normal appearance - ENT Exam ENT Exam: Mucous Membranes Dry - Respiratory Exam Respiratory Exam: Clear to Ausculation Bilateral, NORMAL BREATHING PATTERN - Cardiovascular Exam Cardiovascular Exam: RRR, +S1, +S2 - GI/Abdominal Exam GI & Abdominal Exam: Soft. absent: Distended, Tenderness - Extremities Exam Extremities Exam: Normal Inspection - Neurological Exam Neurological Exam: Alert, Awake, Oriented x3 - Psychiatric Exam Psychiatric exam: Depressed, Flat Affect - Skin Skin Exam: Diaphoretic. absent: Normal Color (flushed) Assessment and Plan - Assessment and Plan (Free Text) Assessment: Patient is a 53 yo female with polysubstance use disorder and sciatica who is currently admitted to the detox unit for heroin withdrawal. Medicine was consulted for fever. Plan: Fever, acute- suspect related to withdrawal +/- UTI - Tmax 102.9 - Vitals Q4H - Transfer patient to med/surg - NS @ 100 cc/hr - Ibuprofen 600 mg PO Q6H PRN Asymptomatic bacteriuria, acute - UA: many irineo, 652 WBC, 3+ LE, pos nitrate - UCx: GNR >100,000 cfu - f/u final and sensitivity - Discontinue Macrobid - Start Cipro 400 mg IV Q12H- started 09/26 Transaminitis, acute, worsening - AST 115--> 147, ALT 82--> 123 - Normal previous admissions - HIV negative - HCV reactive - HCV RNA pending - Abd US pending - Avoid hepatotoxic agents - GI consulted ([facility]) Polysubstance use disorder, chronic- heroin, cocaine, tobacco - UDS positive for opiates and cocaine - BAL <10 - Maalox PRN - Imodium PRN - Zofran PRN - Clonidine 0.1 mg PO Q4H PRN - Ativan 1 mg PO Q6H PRN - Methadone taper - Management as per psychiatry ([facility]) Ppx: VTE: SCDs GI: Protonix 40 mg PO daily Diet: Regular Code status: full code Dispo: Give IVF and IV antibiotics for cystitis. Continue to monitor and manage withdrawal symptoms. Transfer back to psychiatry when medically improved. Case discussed with attending, Dr. Evans.
--- NOTE | 2018-09-26 10:42 | RAD ---
Date of service: 09/26/2018 HISTORY: fever COMPARISON: 10/12/2017 TECHNIQUE: 1 view obtained. FINDINGS: LUNGS: No active pulmonary disease. PLEURA: No significant pleural effusion identified, no pneumothorax apparent. CARDIOVASCULAR: No aortic atherosclerotic calcification present. Normal cardiac size. No pulmonary vascular congestion. OSSEOUS STRUCTURES: No significant abnormalities. VISUALIZED UPPER ABDOMEN: Normal. OTHER FINDINGS: None. IMPRESSION: No active disease.
[2018-09-26 14:32] LABS: BASO % 0.2 % (0.0-2.0); EOS % 0.3 % (0.0-4.0); HEMOGLOBIN 14.9 g/dL (11.0-16.0); LYMPH # 0.7 K/uL (1.0-4.3); LYMPH % 7.7 % (20.0-40.0); MEAN CELL VOLUME 90.4 fL (81.0-99.0); MEAN CORPUSCULAR HEMOGLOBIN 29.7 pg (27.0-31.0); MEAN CORPUSCULAR HGB CONC 32.9 g/dL (33.0-37.0); MEAN PLATELET VOLUME 10.6 fL (7.2-11.7); MONO # 0.4 K/uL (0.0-0.8); MONO % 3.8 % (0.0-10.0); NEUT # 8.3 K/uL (1.8-7.0); PLATELET COUNT 122 K/uL (130-400); RED CELL DISTRIBUTION WIDTH 15.1 % (11.5-14.5); WHITE BLOOD COUNT 9.5 K/uL (4.8-10.8)
[2018-09-26 15:00] LABS: BANDS 2 % (0-2); LYMPHOCYTE 10 % (20-40); MONOCYTE 5 % (0-10); NEUTROPHIL 83 % (50-75); PLATELET ESTIMATE SLIGHTLY DECREASED (NORMAL); TOTAL CELLS COUNTED 100
[2018-09-26 15:01] LABS: ANISOCYTOSIS SLIGHT
[2018-09-26 15:05] LABS: ALB/GLOB RATIO 1.4 (1.0-2.1); ALBUMIN 4.1 g/dL (3.5-5.0); ALT/SGPT 123 U/L (9-52); AST/SGOT 147 U/L (14-36); BLOOD UREA NITROGEN 11 mg/dL (7-17); CALCIUM 9.4 mg/dl (8.6-10.4); GFR NON-AFRICAN AMERICAN > 60
[2018-09-26 15:25] LABS: HEPATITIS B SURFACE AG Negative (NEGATIVE)
[2018-09-26 15:31] LABS: HEPATITIS A IGM NEGATIVE (NEGATIVE); HEPATITIS B CORE AB NEGATIVE (NEGATIVE)
[2018-09-26 16:01] LABS: HEPATITIS C ANTIBODY REACTIVE (NEGATIVE)
[2018-09-26] MEDS ORDERED: Ciprofloxacin 400mg/200ml D5W 400 MG/200 ML BAG IVPB SCH (20:00)
[2018-09-26] MEDS: Pantoprazole 40 mg EC Tab PO SCH (20:21)
--- NOTE | 2018-09-26 22:09 | PCM.PSYCH ---
Initial Psychiatric Evaluation - Initial Psychiatric Evaluation Legal Status: Capacity Chief Complaint (in patient's own words): Heroin detox History of Present Illness and Precipitating Events: Patient is a 53 year old female with a past psychiatric history of heroin use, cocaine use disorder and depression. Patient presented to the ED requesting detox from heroin. Patient reports using 6-7 bags of heroin daily by sniffing. Patient reports that her last use was yesterday where she used only one bag. Patient report going through withdrawals with cold sweats, achy and inability to sleep. Patient reports that she has been to many detox including [facility] , [facility], and [facility]. Patient also reports being admitted on last year. Patient reports tobacco use, smokes about a pack a day. She currently lives with a friend. She has a history of suicide attempts by cutting and overdosing on heroin. PsychHx: Depression, with about 5 suicide attempts by overdosing and cutting, cocaine use disorder and opiates use disorder - Currently treated with Celexa PMHx: Sciatica FamHx: Denies Current Medications: Active Medications Generic Name Dose Route Start Last Admin Trade Name Freq PRN Reason Stop Dose Admin Al Hydrox/Mg Hydrox/Simethicone 30 ml 09/25/18 17:19 Maalox 30 Ml PO TID PRN Indigestion / Heartburn Clonidine HCl 0.1 mg 09/25/18 17:19 Catapres PO Q4 PRN COWS Score More or Equal to 5 Ciprofloxacin 400 mg in 200 mls @ 133 mls/hr 09/26/18 20:00 Cipro 400mg/200ml Dsw IVPB Q12H RITO Protocol Sodium Chloride 1,000 mls @ 100 mls/hr 09/26/18 17:15 Sodium Chloride 0.9% IV .Q10H RITO Ibuprofen 600 mg 09/25/18 17:19 09/26/18 16:52 Motrin Tab PO 600 mg Q6 PRN Administration Pain, moderate (4-7) Loperamide HCl 2 mg 09/25/18 17:19 Imodium PO Q8 PRN Diarrhea Lorazepam 1 mg 09/26/18 00:52 09/26/18 11:51 Ativan PO 1 mg Q6 PRN Administration Allergy symptoms Methadone HCl 20 mg 09/26/18 11:45 09/26/18 11:51 Methadone PO 09/30/18 11:44 20 mg Q24H RITO Administration Taper Nicotine 1 patch 09/27/18 10:00 Nicoderm Cq TD DAILY RITO Pantoprazole Sodium 40 mg 09/26/18 17:30 09/26/18 20:21 Protonix Ec Tab PO 40 mg DAILY RITO Administration Past Psychiatric History - Past Psychiatric History Previous Treatment History: Inpatient Pertinent Medical Hx (Current Medical&Sleep Prob, Allergies): Allergies Allergy/AdvReac Type Severity Reaction Status Date / Time No Known Allergies Allergy Verified 09/25/18 12:08 Citalopram [celEXA] 40 mg PO DAILY #30 tab 07/07/18 Divalproex [Depakote DR] 250 mg PO BID #60 tcp 07/07/18 Gabapentin [Neurontin] 300 mg PO TID #90 cap 07/07/18 Mirtazapine [Remeron] 30 mg PO HS #30 tab 07/07/18 Review of Systems - Psychiatric Psychiatric: As Per HPI, Abnormal Sleep Pattern, Anxiety, Behavioral Changes, Depression Mental Status Examination - Personal Presentation Personal Presentation: Looks older than stated age - Affect Affect: Depressed - Motor Activity Motor Activity: Calm - Reliability in Providing Information Reliability in Providing Information: Fair - Speech Speech: Relevant - Mood Mood: Depressed, Anxious - Formal Thought Process Formal Thought Process: No Impairment - Obsessions/Compulsions Obsessions: None Compulsions: None - Cognitive Functions Orientation: Person, Place, Situation, Time Sensorium: Alert Attention/Concentration: Attentive Estimate of Intelligence: Average Judgement: Imparied, as evidence by: Poor judgement Memory: Recent intact, as evidence by: Ability to recall events of the day - Risk Risk: Withdrawal DSM 5 DX - DSM 5 DSM 5 Diagnosis: Opioid Withdrawal Opioid Use Disoorder, Severe Cocaine Use Disorder, Severe Major Depressive Disorder, Recurrent Severe Without Psychotic Features - Recommended/Plan of Treatment Treatment Recommendations and Plan of Treatment: Taper with Methadone PRN Medications: Ativan, Clonidine, Gabapentin for augmentation if needed All risks, benefits and alternatives of the meds discussed, and the pt agreed and understood. Attend groups and activities Supportive therapy and psychoeducation MD for abstinence CBT for relapse prevention Encourage MAT Refer to rehab or IOP, and self-help groups Teach healthy lifestyle methods, i.e. diet, exercise, meditation Smoking cessation with MD Nicotine patch if needed 34 min - Smoking Cessation Smoking Cessation Initiated: Yes
[2018-09-26] MEDS: Sodium Chloride 0.9% 1,000 ML IV SCH (22:24)
[2018-09-26] MEDS: Ciprofloxacin 400mg/200ml D5W 400 MG/200 ML BAG IVPB SCH (22:46)
[2018-09-27] MEDS: Sodium Chloride 0.9% 1,000 ML IV SCH ×4 (06:10→23:01)
--- NOTE | 2018-09-27 07:44 | CP.PCM.PN ---
<Lakshmi Wetzel - Last Filed: 09/27/18 15:13> Subjective - Date & Time of Evaluation Date of Evaluation: 09/27/18 Time of Evaluation: 07:44 - Subjective Subjective: PGY-1 Lakshmi Wetzel D.O. Medicine progress note for Dr. Evans's service: Patient was seen and examined this morning. She says she is tired and still not feeling well. She is tolerating PO intake. She complains of diffuse body aches. Denies abdominal pain, dysuria, diarrhea, or constipation. Continues to have fevers and chills. Objective - Vital Signs/Intake and Output Vital Signs (last 24 hours): Temp Pulse Resp BP Pulse Ox 98.5 F 65 18 90/57 L 99 09/26/18 23:40 09/26/18 23:40 09/26/18 23:40 09/26/18 23:40 09/26/18 23:40 - Medications Medications: Current Medications Al Hydrox/Mg Hydrox/Simethicone (Maalox 30 Ml) 30 ml PO TID PRN PRN Reason: Indigestion / Heartburn Clonidine HCl (Catapres) 0.1 mg PO Q4 PRN PRN Reason: COWS Score More or Equal to 5 Sodium Chloride (Sodium Chloride 0.9%) 1,000 mls @ 100 mls/hr IV .Q10H RITO Last Admin: 09/27/18 06:10 Dose: Not Given Ciprofloxacin (Cipro 400mg/200ml Dsw) 400 mg in 200 mls @ 133 mls/hr IVPB Q12H RITO; Protocol Last Admin: 09/26/18 22:46 Dose: 133 mls/hr Ibuprofen (Motrin Tab) 600 mg PO Q6 PRN PRN Reason: Pain, moderate (4-7) Last Admin: 09/26/18 16:52 Dose: 600 mg Loperamide HCl (Imodium) 2 mg PO Q8 PRN PRN Reason: Diarrhea Lorazepam (Ativan) 1 mg PO Q6 PRN PRN Reason: Allergy symptoms Last Admin: 09/27/18 02:08 Dose: 1 mg Methadone HCl (Methadone) 20 mg PO Q24H RITO; Taper Stop: 09/30/18 11:44 Last Admin: 09/26/18 11:51 Dose: 20 mg Nicotine (Nicoderm Cq) 1 patch TD DAILY [facility] Pantoprazole Sodium (Protonix Ec Tab) 40 mg PO DAILY [facility] Last Admin: 09/26/18 20:21 Dose: 40 mg - Labs Labs: 09/26/18 14:27 09/26/18 14:27 - Skin Skin Exam: Normal Color, Warm - Additional Findings Additional findings: - Constitutional Appears: Non-toxic, No Acute Distress - Head Exam Head Exam: ATRAUMATIC, NORMAL INSPECTION - Eye Exam Eye Exam: EOMI, Normal appearance - ENT Exam ENT Exam: Mucous Membranes Dry - Respiratory Exam Respiratory Exam: Clear to Ausculation Bilateral, NORMAL BREATHING PATTERN - Cardiovascular Exam Cardiovascular Exam: RRR, +S1, +S2 - GI/Abdominal Exam GI & Abdominal Exam: Soft. absent: Distended, Tenderness - Extremities Exam Extremities Exam: Normal Inspection - Neurological Exam Neurological Exam: Alert, Awake, Oriented x3 - Psychiatric Exam Psychiatric exam: Depressed, Flat Affect Assessment and Plan - Assessment and Plan (Free Text) Assessment: Patient is a 53 yo female with polysubstance use disorder and sciatica who is currently admitted to the detox unit for heroin withdrawal. Medicine was consulted for fever. She was found to have a UTI. She was transferred to med/surg for persistent fever and dehydration. Plan: Fever, acute- suspect related to withdrawal +/- UTI - Tmax 102.3 - Vitals Q6H - NS @ 100 cc/hr - Ibuprofen 600 mg PO Q6H PRN E. coli urinary tract infection, acute - UA: many irineo, 652 WBC, 3+ LE, pos nitrate - UCx: E. coli (negative ESBL) - Cipro LEANN <0.25 - Discontinue Macrobid - Start Cipro 400 mg IV Q12H- started 09/26 - QTc 430 Transaminitis, acute, worsening - AST 115--> 223, ALT 82--> 158 - Normal previous admissions - HIV negative - HCV reactive - HCV RNA pending - Abd US: mild splenomegaly, no liver abnormality - Ferritin wnl - f/u Abs - Avoid hepatotoxic agents - GI consulted ([facility])- not candidate for tx with continued substance use, rec outpatient f/u Polysubstance use disorder, chronic- heroin, cocaine, tobacco - UDS positive for opiates and cocaine - BAL <10 - Nicoderm - Maalox PRN - Imodium PRN - Clonidine 0.1 mg PO Q4H PRN - Ativan 1 mg PO Q6H PRN - Methadone taper - Management as per psychiatry ([facility]) Ppx: VTE: SCDs GI: Protonix 40 mg PO daily Diet: Regular Code status: full code Dispo: Give IVF and IV antibiotics for UTI. Continue to monitor and manage withdrawal symptoms. Transfer back to detox when afebrile at least 24 hours. Case discussed with attending, Dr. Evans. <Kerline Evans - Last Filed: 09/29/18 21:55> Objective - Vital Signs/Intake and Output Vital Signs (last 24 hours): Temp Pulse Resp BP Pulse Ox 97.9 F 58 L 20 115/71 100 09/29/18 15:46 09/29/18 15:46 09/29/18 15:46 09/29/18 15:46 09/29/18 15:46 Intake and Output: 09/29/18 09/30/18 18:59 06:59 Intake Total 1250 Balance 1250 - Medications Medications: Current Medications Al Hydrox/Mg Hydrox/Simethicone (Maalox 30 Ml) 30 ml PO TID PRN PRN Reason: Indigestion / Heartburn Clonidine HCl (Catapres) 0.1 mg PO Q4 PRN PRN Reason: COWS Score More or Equal to 5 Ceftriaxone Sodium (Rocephin Iv 1 Gm Duplex) 50 mls @ 100 mls/hr IVPB Q12H RITO; Protocol Last Admin: 09/29/18 17:27 Dose: 100 mls/hr Ibuprofen (Motrin Tab) 600 mg PO Q6 PRN PRN Reason: Pain, moderate (4-7) Last Admin: 09/28/18 19:49 Dose: 600 mg Loperamide HCl (Imodium) 2 mg PO Q8 PRN PRN Reason: Diarrhea Lorazepam (Ativan) 1 mg PO Q6 PRN PRN Reason: Allergy symptoms Last Admin: 09/29/18 13:57 Dose: 1 mg Methadone HCl (Methadone) 5 mg PO BID RITO Stop: 09/30/18 10:01 Last Admin: 09/29/18 17:27 Dose: 5 mg Nicotine (Nicoderm Cq) 1 patch TD DAILY RITO Last Admin: 09/29/18 10:26 Dose: 1 patch Pantoprazole Sodium (Protonix Ec Tab) 40 mg PO DAILY RITO Last Admin: 09/29/18 10:26 Dose: 40 mg Trazodone HCl (Desyrel) 100 mg PO HS PRN PRN Reason: Insomnia Last Admin: 09/29/18 21:25 Dose: 100 mg - Labs Labs: 09/29/18 08:09 09/29/18 08:09 Attending/Attestation - Attestation I have personally seen and examined this patient.: Yes I have fully participated in the care of the patient.: Yes I have reviewed all pertinent clinical information, including history, physical exam and plan: Yes
[2018-09-27 08:17] LABS: BASO % 0.3 % (0.0-2.0); EOS % 0.3 % (0.0-4.0); LYMPH # 1.2 K/uL (1.0-4.3); LYMPH % 17.1 % (20.0-40.0); MEAN CELL VOLUME 88.6 fL (81.0-99.0); MEAN CORPUSCULAR HEMOGLOBIN 29.7 pg (27.0-31.0); MEAN CORPUSCULAR HGB CONC 33.5 g/dL (33.0-37.0); MONO # 0.7 K/uL (0.0-0.8); MONO % 9.6 % (0.0-10.0); NEUT # 5.2 K/uL (1.8-7.0); NEUT % 72.7 % (50.0-75.0); RBC 4.37 Mil/uL (3.80-5.20); RED CELL DISTRIBUTION WIDTH 14.9 % (11.5-14.5); WHITE BLOOD COUNT 7.2 K/uL (4.8-10.8)
[2018-09-27 08:19] LABS: ALB/GLOB RATIO 1.2 (1.0-2.1); ALBUMIN 3.2 g/dL (3.5-5.0); ALT/SGPT 158 U/L (9-52); AST/SGOT 223 U/L (14-36); BLOOD UREA NITROGEN 9 mg/dL (7-17); CALCIUM 8.6 mg/dl (8.6-10.4); GFR NON-AFRICAN AMERICAN > 60
--- NOTE | 2018-09-27 08:28 | CP.PCM.CON ---
History of Present Illness - History of Present Illness History of Present Illness: Asked by medical service for a GI consultation on this patient. 53 year old female with history of polysubstance abuse who presents to hospital for treatment of heroin withdrawal. She last used heroin 2 days prior to admission. GI called for elevated LFTs in setting of positive HCV antibody. She reports generalized body aches but denies nausea, vomiting, fever/chills, jaundice, pruritis, or prior knowledge of liver disease. She is tolerating PO diet without difficulty. No prior endoscopic evaluation. Social history: smokes 1PPD cigarettes, no ETOH use Family history: reviewed, patient denies history of GI malignancy Review of Systems - Review of Systems Review of Systems: - All other comprehensive 12 point review of systems performed, negative - Constitutional Constitutional: Malaise - Cardiovascular Cardiovascular: absent: Acrocyanosis, Chest Pain, Chest Pain at Rest, Chest Pain with Activity, Claudication, Diaphoresis, Dyspnea, Dyspnea on Exertion, Edema, Irregular Heart Rhythm, Pain Radiating to Arm/Neck/Jaw, Leg Edema, Leg Ulcers, Lightheadedness, Orthopnea, Palpitations, Paroxysmal Nocturnal Dyspnea, Pedal Edema, Radiating Pain, Rapid Heart Rate, Slow Heart Rate, Syncope, Other - Respiratory Respiratory: absent: Cough, Dyspnea, Hemoptysis, Dyspnea on Exertion, Wheezing, Snoring, Stridor, Pain on Inspiration, Chest Congestion, Excessive Mucous Production, Change in Mucous Color, Pain with Coughing, Other - Gastrointestinal Gastrointestinal: absent: Abdominal Pain, Belching, Bloating, Change in Bowel Habits, Change in Stool Character, Coffee Ground Emesis, Constipation, Cramping, Diarrhea, Dyspepsia, Dysphagia, Early Satiety, Excessive Flatus, Fecal Incontinence, Heartburn, Hematemesis, Hematochezia, Loose Stools, Melena, Nausea, Odynophagia, Temesmus, Vomiting, Other - Musculoskeletal Musculoskeletal: Muscle Cramps - Neurological Neurological: absent: Abnormal Gait, Abnormal Hearing, Abnormal Movements, Abnormal Speech, Behavioral Changes, Burning Sensations, Confusion, Convulsions, Disequilibrium, Dizziness, Numbness, Focal Weakness, Frequent Falls, Headaches, Lack of Coordination, Loss of Vision, Memory Loss, Paresthesias, Radicular Pain, Restless Legs, Sensory Deficit, Syncope, Tingling, Tremor, Vertigo, Weakness, Other Visual Disturbances, Other Past Patient History - Infectious Disease Hx of Infectious Diseases: None - Tetanus Immunizations Tetanus Immunization: Up to Date - Past Medical History & Family History Past Medical History?: Yes - Past Social History Smoking Status: Heavy Smoker > 10 Cigarettes Daily - CARDIAC Hx Hypertension: No - PULMONARY Hx Tuberculosis: No - NEUROLOGICAL Hx Seizures: No - RENAL Other/Comment: std ,gonorrhea - HEMATOLOGICAL/ONCOLOGICAL Hx Human Immunodeficiency Virus (HIV): No - INTEGUMENTARY Hx Dermatological Problems: No - MUSCULOSKELETAL/RHEUMATOLOGICAL Hx Musculoskeletal Disorders: Yes Hx Falls: No Other/Comment: SCIATICA - GENITOURINARY/GYNECOLOGICAL Hx Sexually Transmitted Disorders: Yes (Patient amitted to having Gonorrhea) Hx Urinary Tract Infection: Yes - PSYCHIATRIC Hx Substance Use: Yes - SURGICAL HISTORY Hx Appendectomy: Yes Hx Section: Yes - ANESTHESIA Hx Anesthesia: Yes Hx Anesthesia Reactions: No Meds Allergies/Adverse Reactions: Allergies Allergy/AdvReac Type Severity Reaction Status Date / Time No Known Allergies Allergy Verified 09/25/18 12:08 - Medications Medications: Current Medications Al Hydrox/Mg Hydrox/Simethicone (Maalox 30 Ml) 30 ml PO TID PRN PRN Reason: Indigestion / Heartburn Clonidine HCl (Catapres) 0.1 mg PO Q4 PRN PRN Reason: COWS Score More or Equal to 5 Sodium Chloride (Sodium Chloride 0.9%) 1,000 mls @ 100 mls/hr IV .Q10H RITO Last Admin: 09/27/18 06:10 Dose: Not Given Ciprofloxacin (Cipro 400mg/200ml Dsw) 400 mg in 200 mls @ 133 mls/hr IVPB Q12H RITO; Protocol Last Admin: 09/26/18 22:46 Dose: 133 mls/hr Ibuprofen (Motrin Tab) 600 mg PO Q6 PRN PRN Reason: Pain, moderate (4-7) Last Admin: 09/27/18 08:03 Dose: 600 mg Loperamide HCl (Imodium) 2 mg PO Q8 PRN PRN Reason: Diarrhea Lorazepam (Ativan) 1 mg PO Q6 PRN PRN Reason: Allergy symptoms Last Admin: 09/27/18 02:08 Dose: 1 mg Methadone HCl (Methadone) 20 mg PO Q24H RITO; Taper Stop: 09/30/18 11:44 Last Admin: 09/26/18 11:51 Dose: 20 mg Nicotine (Nicoderm Cq) 1 patch TD DAILY [facility] Pantoprazole Sodium (Protonix Ec Tab) 40 mg PO DAILY [facility] Last Admin: 09/26/18 20:21 Dose: 40 mg Physical Exam - Constitutional Appears: Non-toxic, No Acute Distress - Head Exam Head Exam: NORMAL INSPECTION - Eye Exam Eye Exam: EOMI, Normal appearance - ENT Exam ENT Exam: Mucous Membranes Moist - Respiratory Exam Respiratory Exam: Clear to Auscultation Bilateral - Cardiovascular Exam Cardiovascular Exam: REGULAR RHYTHM, +S1, +S2 - GI/Abdominal Exam GI & Abdominal Exam: Normal Bowel Sounds, Soft Additional comments: non tender to palpation in four quadrants no palpable hepato/splenomegaly - Extremities Exam Extremities exam: Positive for: normal inspection - Neurological Exam Neurological exam: Alert, CN II-XII Intact, Oriented x3, Reflexes Normal - Psychiatric Exam Psychiatric exam: Normal Affect, Normal Mood - Skin Skin Exam: Dry, Intact, Normal Color, Warm Additional comments: multiple tattoos on b/l upper and lower extremities Results - Vital Signs Recent Vital Signs: Last Vital Signs Temp 98.5 F 09/26/18 23:40 Pulse 65 09/26/18 23:40 Resp 18 09/26/18 23:40 BP 90/57 L 09/26/18 23:40 Pulse Ox 99 09/26/18 23:40 - Labs Result Diagrams: 09/26/18 14:27 09/27/18 07:00 Labs: Laboratory Results - last 24 hr 09/26/18 09/26/18 09/26/18 14:27 14:27 14:27 WBC 9.5 RBC 5.00 Hgb 14.9 Hct 45.2 MCV 90.4 MCH 29.7 MCHC 32.9 L RDW 15.1 H Plt Count 122 L MPV 10.6 Neut % (Auto) 88.0 H Lymph % (Auto) 7.7 L [place] % (Auto) 3.8 Eos % (Auto) 0.3 Baso % (Auto) 0.2 Neut # (Auto) 8.3 H Lymph # (Auto) 0.7 L [place] # (Auto) 0.4 Eos # (Auto) 0.0 Baso # (Auto) 0.0 Neutrophils % (Manual) 83 H Band Neutrophils % 2 Lymphocytes % (Manual) 10 L Monocytes % (Manual) 5 Platelet Estimate Slightly decreased L Anisocytosis (manual) Slight Sodium Potassium Chloride Carbon Dioxide Anion Gap BUN Creatinine Est GFR ( Amer) Est GFR (Non-Af Amer) Random Glucose Calcium Phosphorus Magnesium Total Bilirubin AST ALT Alkaline Phosphatase Total Protein Albumin Globulin Albumin/Globulin Ratio Hepatitis A IgM Ab Negative Hep Bs Antigen Negative Hep B Core IgM Ab Negative Hepatitis C Antibody Reactive HIV 1&2 Antibody Screen Negative 09/26/18 09/27/18 14:27 07:00 WBC RBC Hgb Hct MCV MCH MCHC RDW Plt Count MPV Neut % (Auto) Lymph % (Auto) [place] % (Auto) Eos % (Auto) Baso % (Auto) Neut # (Auto) Lymph # (Auto) [place] # (Auto) Eos # (Auto) Baso # (Auto) Neutrophils % (Manual) Band Neutrophils % Lymphocytes % (Manual) Monocytes % (Manual) Platelet Estimate Anisocytosis (manual) Sodium 136 137 Potassium 4.2 4.4 Chloride 101 104 Carbon Dioxide 30 24 Anion Gap 9 L 13 BUN 11 9 Creatinine 0.6 L 0.6 L Est GFR ( Amer) > 60 > 60 Est GFR (Non-Af Amer) > 60 > 60 Random Glucose 138 H 104 D Calcium 9.4 8.6 Phosphorus 2.5 2.1 L Magnesium 2.1 1.8 Total Bilirubin 1.5 H 1.1 AST 147 H D 223 H D ALT 123 H D 158 H D Alkaline Phosphatase 81 68 Total Protein 7.2 5.9 L Albumin 4.1 3.2 L D Globulin 3.0 2.7 Albumin/Globulin Ratio 1.4 1.2 Hepatitis A IgM Ab Hep Bs Antigen Hep B Core IgM Ab Hepatitis C Antibody HIV 1&2 Antibody Screen Assessment & Plan - Assessment and Plan (Free Text) Assessment: Polysubstance abuse Fever Transaminitis, HCV UTI Plan: - Diet as tolerated - Continue to monitor LFTs and avoid hepatotoxic therapies - Obtain abdominal US - Obtain autoimmune panel and iron studies - Continue with antibiotic therapy as per medical team - Patient is not likely candidate for treatment of HCV given ongoing substance abuse, though would benefit from outpatient follow up - Will continue to monitor patient clinical course
[2018-09-27] MEDS: Pantoprazole 40 mg EC Tab PO SCH (10:22)
[2018-09-27] MEDS: Ciprofloxacin 400mg/200ml D5W 400 MG/200 ML BAG IVPB SCH ×2 (11:33→22:01)
--- NOTE | 2018-09-27 11:38 | US ---
Date of service: 09/27/2018 HISTORY: elevated LFTs COMPARISON: None. TECHNIQUE: Sonographic evaluation of the abdomen. FINDINGS: LIVER: Measures 17.8 cm. Normal echogenicity of the liver parenchyma. No mass. No intrahepatic bile duct dilatation. GALLBLADDER: Unremarkable. No gallstones. COMMON BILE DUCT: Measures 5 mm. No stones. No dilatation. PANCREAS: Unremarkable as visualized. No mass. No ductal dilatation. RIGHT KIDNEY: Measures 11.1cm. Normal echogenicity. No calculus, mass, or hydronephrosis. LEFT KIDNEY: Measures 12.1cm. Normal echogenicity. No calculus, mass, or hydronephrosis. SPLEEN: Minimal splenomegaly. The spleen measures 13.2 cm in greatest dimension. No focal mass. AORTA: No aneurysmal dilatation. IVC: Unremarkable. OTHER FINDINGS: None. IMPRESSION: Minimal splenomegaly. Otherwise unremarkable examination.
--- NOTE | 2018-09-28 07:32 | CP.PCM.PN ---
<Gato Urena - Last Filed: 09/28/18 11:32> Subjective - Date & Time of Evaluation Date of Evaluation: 09/28/18 Time of Evaluation: 07:00 - Subjective Subjective: Medicine progress note hospitalist Dr. Pichardo. Patient seen and examined at bedside. Pt lying in bed comfortably, reports having generalized body aches for the past day along with fevers/chills. Pt denies headaches, vision changes, chest pain, SOB, cough, abdominal pain, nausea, vomiting. Objective - Vital Signs/Intake and Output Vital Signs (last 24 hours): Temp Pulse Resp BP Pulse Ox 97.7 F 65 18 98/57 L 99 09/28/18 01:00 09/28/18 01:00 09/28/18 01:00 09/28/18 01:00 09/28/18 01:00 Intake and Output: 09/28/18 09/28/18 06:59 18:59 Intake Total 800 Balance 800 - Medications Medications: Current Medications Al Hydrox/Mg Hydrox/Simethicone (Maalox 30 Ml) 30 ml PO TID PRN PRN Reason: Indigestion / Heartburn Clonidine HCl (Catapres) 0.1 mg PO Q4 PRN PRN Reason: COWS Score More or Equal to 5 Ciprofloxacin (Cipro 400mg/200ml Dsw) 400 mg in 200 mls @ 133 mls/hr IVPB Q12H RITO; Protocol Last Admin: 09/27/18 22:01 Dose: 133 mls/hr Sodium Chloride (Sodium Chloride 0.9%) 1,000 mls @ 125 mls/hr IV .Q8H RITO Last Admin: 09/27/18 23:01 Dose: Not Given Ibuprofen (Motrin Tab) 600 mg PO Q6 PRN PRN Reason: Pain, moderate (4-7) Last Admin: 09/27/18 22:03 Dose: 600 mg Loperamide HCl (Imodium) 2 mg PO Q8 PRN PRN Reason: Diarrhea Lorazepam (Ativan) 1 mg PO Q6 PRN PRN Reason: Allergy symptoms Last Admin: 09/27/18 19:22 Dose: 1 mg Methadone HCl (Methadone) 15 mg PO Q24H RITO; Taper Stop: 09/30/18 11:44 Last Admin: 09/27/18 11:50 Dose: 15 mg Nicotine (Nicoderm Cq) 1 patch TD DAILY [facility] Last Admin: 09/27/18 10:22 Dose: Not Given Pantoprazole Sodium (Protonix Ec Tab) 40 mg PO DAILY [facility] Last Admin: 09/27/18 10:22 Dose: 40 mg - Labs Labs: 09/27/18 07:00 09/27/18 07:00 - Constitutional Appears: Non-toxic, No Acute Distress - Head Exam Head Exam: NORMAL INSPECTION - Eye Exam Eye Exam: EOMI, Normal appearance - ENT Exam ENT Exam: Mucous Membranes Moist - Respiratory Exam Respiratory Exam: Clear to Ausculation Bilateral, NORMAL BREATHING PATTERN. absent: Rales, Rhonchi, Wheezes - Cardiovascular Exam Cardiovascular Exam: +S1, +S2. absent: Murmur - GI/Abdominal Exam GI & Abdominal Exam: Soft, Hyperactive Bowel Sounds - Back Exam Back Exam: absent: CVA tenderness (L), CVA tenderness (R) - Neurological Exam Neurological Exam: Alert, Awake, Oriented x3 - Psychiatric Exam Psychiatric exam: Flat Affect - Skin Skin Exam: Intact, Normal Color, Warm Assessment and Plan - Assessment and Plan (Free Text) Assessment: 53 yo female with polysubstance use disorder (cocain & heroine, intranasal) and sciatica who is currently admitted to the detox unit for heroin withdrawal. Medicine was consulted for fever. She was found to have a UTI, growing E. coli, sensitive to ciproflaxicin. She was transferred to med/surg for persistent fever and dehydration, on IV cipro. Pt has persistent fever spikes Plan: Fever E. coli urinary tract infection, acute - T max 102.9 overnight - UA: many irineo, 652 WBC, 3+ LE, pos nitrate - UCx: E. coli (negative ESBL) - Cipro LEANN <0.25 - Discontinue Macrobid - Cipro 400 mg IV Q12H- started 09/26 - QTc 430 - NS @ 125 mls/hr - F/u blood cultures Transaminitis, acute, trending up - likely from ischemic injury from hypotension from ?sepsi - AST 115--> 329, ALT 82--> 245 - Normal previous admissions - HIV negative - HCV reactive - HCV RNA pending - Abd US: mild splenomegaly, no liver abnormality - Ferritin wnl - f/u Abs - Avoid hepatotoxic agents - GI consulted (Hsei)- not candidate for tx with continued substance use, rec outpatient f/u Polysubstance use disorder, chronic- heroin, cocaine, tobacco - UDS positive for opiates and cocaine - BAL <10 - Nicoderm - Maalox PRN - Imodium PRN - Clonidine 0.1 mg PO Q4H PRN - Ativan 1 mg PO Q6H PRN - Methadone taper - Management as per psychiatry (Arnulfo) Ppx: VTE: SCDs GI: Protonix 40 mg PO daily Diet: Regular Code status: full code Dispo: Give IVF and IV antibiotics for UTI. Continue to monitor and manage withdrawal symptoms. Transfer back to detox when afebrile at least 24 hours. <Shyam Pichardo H - Last Filed: 09/28/18 15:30> Objective - Vital Signs/Intake and Output Vital Signs (last 24 hours): Temp Pulse Resp BP Pulse Ox 97.6 F 74 20 119/68 100 09/28/18 08:00 09/28/18 08:00 09/28/18 08:00 09/28/18 08:00 09/28/18 08:00 Intake and Output: 09/28/18 09/28/18 06:59 18:59 Intake Total 800 Balance 800 - Medications Medications: Current Medications Al Hydrox/Mg Hydrox/Simethicone (Maalox 30 Ml) 30 ml PO TID PRN PRN Reason: Indigestion / Heartburn Clonidine HCl (Catapres) 0.1 mg PO Q4 PRN PRN Reason: COWS Score More or Equal to 5 Ciprofloxacin (Cipro 400mg/200ml Dsw) 400 mg in 200 mls @ 133 mls/hr IVPB Q12H RITO; Protocol Last Admin: 09/28/18 11:07 Dose: 133 mls/hr Sodium Chloride (Sodium Chloride 0.9%) 1,000 mls @ 125 mls/hr IV .Q8H [facility] Last Admin: 09/28/18 13:57 Dose: Not Given Ibuprofen (Motrin Tab) 600 mg PO Q6 PRN PRN Reason: Pain, moderate (4-7) Last Admin: 09/27/18 22:03 Dose: 600 mg Loperamide HCl (Imodium) 2 mg PO Q8 PRN PRN Reason: Diarrhea Lorazepam (Ativan) 1 mg PO Q6 PRN PRN Reason: Allergy symptoms Last Admin: 09/28/18 11:04 Dose: 1 mg Methadone HCl (Methadone) 10 mg PO Q24H RITO; Taper Stop: 09/30/18 11:44 Last Admin: 09/28/18 11:05 Dose: 10 mg Nicotine (Nicoderm Cq) 1 patch TD DAILY [facility] Last Admin: 09/28/18 11:05 Dose: 1 patch Pantoprazole Sodium (Protonix Ec Tab) 40 mg PO DAILY [facility] Last Admin: 09/28/18 11:05 Dose: 40 mg - Labs Labs: 09/28/18 07:36 09/28/18 07:36 Attending/Attestation - Attestation I have personally seen and examined this patient.: Yes I have fully participated in the care of the patient.: Yes I have reviewed all pertinent clinical information, including history, physical exam and plan: Yes Notes (Text): Medical attending: Patient was seen and examined by me. Agree with the above note by the resident The patient was not in any acute distress when we initially came and saw her. She was asleep and woke up when we came and examined and spoke with her. She did have a T max 102, currently on IV Cipro at this time. The urine culture grew out E. coli, The patient became suddenly demanding of her methadone, and also complained that there were too many people talking to her and that she was being examined far too often We asked also about her hepatitis C, she reported that she did not know she was hepatitis C positive and then asked how this could happen and I explained that pollo this was from the history of IVDA - and she was very upset about this. At this time will continue with the IV abx, and the current regimen for withdrawl. Shyam Pichardo
[2018-09-28 07:46] LABS: BASO % 0.4 % (0.0-2.0); EOS # 0.1 K/uL (0.0-0.7); EOS % 1.5 % (0.0-4.0); LYMPH # 1.5 K/uL (1.0-4.3); LYMPH % 33.4 % (20.0-40.0); MEAN CORPUSCULAR HEMOGLOBIN 29.6 pg (27.0-31.0); MEAN CORPUSCULAR HGB CONC 32.9 g/dL (33.0-37.0); MEAN PLATELET VOLUME 10.6 fL (7.2-11.7); MONO # 0.6 K/uL (0.0-0.8); MONO % 14.5 % (0.0-10.0); NEUT # 2.2 K/uL (1.8-7.0); NEUT % 50.2 % (50.0-75.0); NRBC % 0.1 % (0.0-2.0); RBC 4.4 Mil/uL (3.80-5.20); RED CELL DISTRIBUTION WIDTH 15.2 % (11.5-14.5); WHITE BLOOD COUNT 4.4 K/uL (4.8-10.8)
[2018-09-28 08:09] LABS: ALB/GLOB RATIO 1.2 (1.0-2.1); ALT/SGPT 245 U/L (9-52); AST/SGOT 329 U/L (14-36); BLOOD UREA NITROGEN 9 mg/dL (7-17); GFR NON-AFRICAN AMERICAN > 60
[2018-09-28 08:20] VITALS: RESP 20
--- NOTE | 2018-09-28 08:26 | CP.PCM.PN ---
<Kisha Correa - Last Filed: 09/28/18 08:51> Subjective - Date & Time of Evaluation Date of Evaluation: 09/28/18 Time of Evaluation: 07:15 - Subjective Subjective: GI Fellow PGY 5 Pt seen and at bedside, pt complains of sweating and generalized abdominal discomfort. Reports fevers overnight. ROS: A 12pt ROS was negative except as above. Objective - Vital Signs/Intake and Output Vital Signs (last 24 hours): Temp Pulse Resp BP Pulse Ox 97.6 F 74 20 119/68 100 09/28/18 08:00 09/28/18 08:00 09/28/18 08:00 09/28/18 08:00 09/28/18 08:00 Intake and Output: 09/28/18 09/28/18 06:59 18:59 Intake Total 800 Balance 800 - Medications Medications: Current Medications Al Hydrox/Mg Hydrox/Simethicone (Maalox 30 Ml) 30 ml PO TID PRN PRN Reason: Indigestion / Heartburn Clonidine HCl (Catapres) 0.1 mg PO Q4 PRN PRN Reason: COWS Score More or Equal to 5 Ciprofloxacin (Cipro 400mg/200ml Dsw) 400 mg in 200 mls @ 133 mls/hr IVPB Q12H RITO; Protocol Last Admin: 09/27/18 22:01 Dose: 133 mls/hr Sodium Chloride (Sodium Chloride 0.9%) 1,000 mls @ 125 mls/hr IV .Q8H [facility]O Last Admin: 09/27/18 23:01 Dose: Not Given Ibuprofen (Motrin Tab) 600 mg PO Q6 PRN PRN Reason: Pain, moderate (4-7) Last Admin: 09/27/18 22:03 Dose: 600 mg Loperamide HCl (Imodium) 2 mg PO Q8 PRN PRN Reason: Diarrhea Lorazepam (Ativan) 1 mg PO Q6 PRN PRN Reason: Allergy symptoms Last Admin: 09/27/18 19:22 Dose: 1 mg Methadone HCl (Methadone) 15 mg PO Q24H RITO; Taper Stop: 09/30/18 11:44 Last Admin: 09/27/18 11:50 Dose: 15 mg Nicotine (Nicoderm Cq) 1 patch TD DAILY [facility] Last Admin: 09/27/18 10:22 Dose: Not Given Pantoprazole Sodium (Protonix Ec Tab) 40 mg PO DAILY [facility] Last Admin: 09/27/18 10:22 Dose: 40 mg - Labs Labs: 09/28/18 07:36 09/28/18 07:36 - Constitutional Appears: Non-toxic, No Acute Distress, Unkempt, Older Than Stated Age - Head Exam Head Exam: ATRAUMATIC, NORMAL INSPECTION, NORMOCEPHALIC - Eye Exam Eye Exam: EOMI, Normal appearance, PERRL - ENT Exam ENT Exam: Mucous Membranes Moist - Neck Exam Neck Exam: Full ROM - Respiratory Exam Respiratory Exam: Clear to Ausculation Bilateral, NORMAL BREATHING PATTERN - Cardiovascular Exam Cardiovascular Exam: Tachycardia, +S1, +S2 - GI/Abdominal Exam GI & Abdominal Exam: Soft, Tenderness, Normal Bowel Sounds. absent: Distended, Firm, Guarding, Rigid, Organomegaly - Rectal Exam Rectal Exam: Deferred - Extremities Exam Extremities Exam: Full ROM, Normal Inspection - Back Exam Back Exam: NORMAL INSPECTION - Neurological Exam Neurological Exam: Alert, Awake, Oriented x3 - Psychiatric Exam Psychiatric exam: Normal Affect, Normal Mood - Skin Skin Exam: Dry, Intact, Normal Color, Warm Assessment and Plan - Assessment and Plan (Free Text) Assessment: 1. Transamenemia 2. HCV antibody positive 3. Polysubstance abuse 4. Fever/Hypotension 5. UTI Plan: -LFTs elevated and trending up, likely from ischemic injury and persistent hypotension -Recommend aggressive IVF resuscitation in setting of Sepsis -Continue to monitor LFTs -Abdominal US negative for mass lesions, cirrhosis, obstruction -Recommend abdominal US with Doppler to evaluate portal vein patency -Avoid hepatotoxic therapies -Diet as tolerated -Autoimmune panel and iron studies pending -Continue with antibiotic therapy as per primary team -HCV viral load pending, would benefit from outpatient follow up -Will continue to monitor patient clinical course <Sandeep Granger - Last Filed: 09/28/18 15:32> Objective - Vital Signs/Intake and Output Vital Signs (last 24 hours): Temp Pulse Resp BP Pulse Ox 97.6 F 74 20 119/68 100 09/28/18 08:00 09/28/18 08:00 09/28/18 08:00 09/28/18 08:00 09/28/18 08:00 Intake and Output: 09/28/18 09/28/18 06:59 18:59 Intake Total 800 Balance 800 - Medications Medications: Current Medications Al Hydrox/Mg Hydrox/Simethicone (Maalox 30 Ml) 30 ml PO TID PRN PRN Reason: Indigestion / Heartburn Clonidine HCl (Catapres) 0.1 mg PO Q4 PRN PRN Reason: COWS Score More or Equal to 5 Ciprofloxacin (Cipro 400mg/200ml Dsw) 400 mg in 200 mls @ 133 mls/hr IVPB Q12H RITO; Protocol Last Admin: 09/28/18 11:07 Dose: 133 mls/hr Sodium Chloride (Sodium Chloride 0.9%) 1,000 mls @ 125 mls/hr IV .Q8H [facility]ITO Last Admin: 09/28/18 13:57 Dose: Not Given Ibuprofen (Motrin Tab) 600 mg PO Q6 PRN PRN Reason: Pain, moderate (4-7) Last Admin: 09/27/18 22:03 Dose: 600 mg Loperamide HCl (Imodium) 2 mg PO Q8 PRN PRN Reason: Diarrhea Lorazepam (Ativan) 1 mg PO Q6 PRN PRN Reason: Allergy symptoms Last Admin: 09/28/18 11:04 Dose: 1 mg Methadone HCl (Methadone) 10 mg PO Q24H RITO; Taper Stop: 09/30/18 11:44 Last Admin: 09/28/18 11:05 Dose: 10 mg Nicotine (Nicoderm Cq) 1 patch TD DAILY [facility] Last Admin: 09/28/18 11:05 Dose: 1 patch Pantoprazole Sodium (Protonix Ec Tab) 40 mg PO DAILY [facility] Last Admin: 09/28/18 11:05 Dose: 40 mg - Labs Labs: 09/28/18 07:36 09/28/18 07:36 Attending/Attestation - Attestation I have personally seen and examined this patient.: Yes I have fully participated in the care of the patient.: Yes I have reviewed all pertinent clinical information, including history, physical exam and plan: Yes Notes (Text): 09/28/18 15:30 I have seen and examined patient with GI fellow. No acute events overnight, she reports ongoing fatigue and weakness but otherwise denies abdominal pain, nausea, vomiting, change in bowel habits. Temperature of 102.9 from yesterday noted. Tolerating PO diet without difficulty. Polysubstance abuse Fever, UTI Transaminitis, HCV - Diet as tolerated - Continue with antibiotic therapy as per medical team - Abdominal US reviewed by me showing no focal hepatic abnormalities, will contact radiology for comment on portal and hepatic veins - LFTs trending up, continue to monitor - likely multifactorial in setting of recent cocaine use, HCV, and sepsis/hypotension - Awaiting autoimmune serologies - Will continue to monitor patient clinical course
[2018-09-28] MEDS: Pantoprazole 40 mg EC Tab PO SCH (11:05)
[2018-09-28] MEDS: Ciprofloxacin 400mg/200ml D5W 400 MG/200 ML BAG IVPB SCH ×2 (11:07→22:38)
[2018-09-28] MEDS: Sodium Chloride 0.9% 1,000 ML IV SCH ×2 (12:54→13:57)
--- NOTE | 2018-09-29 00:20 | PCM.PYCHPN ---
Psychiatric Progress Note - Psychiatric Progress Note Medication Change: Yes Medical Record Reviewed: Yes Mental Status Examination - Cognitive Function Orientation: Person, Place, Situation, Time - Mood Mood: Depressed, Anxious - Affect Affect: Depressed - Formal Thought Process Formal Thought Process: No Impairment
--- NOTE | 2018-09-29 06:52 | CP.PCM.PN ---
<Gato Urena - Last Filed: 09/29/18 14:23> Subjective - Date & Time of Evaluation Date of Evaluation: 09/29/18 Time of Evaluation: 07:10 - Subjective Subjective: Medicine progress note for hospitalist Dr. Pichardo. Pt seen and examined at bedside. Pt reports not feeling feverish overnight, but states he is having abdominal cramping starting this AM. Pt denies headaches, blurry vision, chest pain, SOB, cough, nausea, vomiting, diarrhea, constipation, fevers, chills. Objective - Vital Signs/Intake and Output Vital Signs (last 24 hours): Temp Pulse Resp BP Pulse Ox 97.5 F L 57 L 20 105/56 L 98 09/29/18 05:02 09/28/18 23:25 09/28/18 23:25 09/28/18 23:25 09/28/18 23:25 Intake and Output: 09/28/18 09/29/18 18:59 06:59 Intake Total 1000 Balance 1000 - Medications Medications: Current Medications Al Hydrox/Mg Hydrox/Simethicone (Maalox 30 Ml) 30 ml PO TID PRN PRN Reason: Indigestion / Heartburn Clonidine HCl (Catapres) 0.1 mg PO Q4 PRN PRN Reason: COWS Score More or Equal to 5 Ciprofloxacin (Cipro 400mg/200ml Dsw) 400 mg in 200 mls @ 133 mls/hr IVPB Q12H RITO; Protocol Last Admin: 09/28/18 22:38 Dose: 133 mls/hr Sodium Chloride (Sodium Chloride 0.9%) 1,000 mls @ 125 mls/hr IV .Q8H [facility]O Last Admin: 09/28/18 13:57 Dose: Not Given Ibuprofen (Motrin Tab) 600 mg PO Q6 PRN PRN Reason: Pain, moderate (4-7) Last Admin: 09/28/18 19:49 Dose: 600 mg Loperamide HCl (Imodium) 2 mg PO Q8 PRN PRN Reason: Diarrhea Lorazepam (Ativan) 1 mg PO Q6 PRN PRN Reason: Allergy symptoms Last Admin: 09/28/18 11:04 Dose: 1 mg Methadone HCl (Methadone) 10 mg PO Q24H RITO; Taper Stop: 09/30/18 11:44 Last Admin: 09/28/18 11:05 Dose: 10 mg Nicotine (Nicoderm Cq) 1 patch TD DAILY [facility] Last Admin: 09/28/18 11:05 Dose: 1 patch Pantoprazole Sodium (Protonix Ec Tab) 40 mg PO DAILY [facility] Last Admin: 09/28/18 11:05 Dose: 40 mg - Labs Labs: 09/28/18 07:36 09/28/18 07:36 - Constitutional Appears: Non-toxic, No Acute Distress - Head Exam Head Exam: NORMAL INSPECTION - Eye Exam Eye Exam: EOMI, Normal appearance - ENT Exam ENT Exam: Mucous Membranes Moist - Respiratory Exam Respiratory Exam: Clear to Ausculation Bilateral, NORMAL BREATHING PATTERN. absent: Rales, Rhonchi, Wheezes - Cardiovascular Exam Cardiovascular Exam: +S1, +S2. absent: Murmur - GI/Abdominal Exam GI & Abdominal Exam: Soft, Normal Bowel Sounds. absent: Firm, Guarding, Rigid, Tenderness - Extremities Exam Extremities Exam: Full ROM, Normal Inspection. absent: Calf Tenderness, Pedal Edema - Back Exam Back Exam: absent: CVA tenderness (L), CVA tenderness (R) - Neurological Exam Neurological Exam: Alert, Awake, Oriented x3 - Psychiatric Exam Psychiatric exam: Normal Affect, Normal Mood - Skin Skin Exam: Dry, Intact, Normal Color, Warm Assessment and Plan - Assessment and Plan (Free Text) Assessment: 53 yo female with polysubstance use disorder (cocain & heroine, intranasal) and sciatica who is currently admitted to the detox unit for heroin withdrawal. Medicine was consulted for fever. She was found to have a UTI, growing E. coli, sensitive to ciproflaxicin. She was transferred to med/surg for persistent fever and dehydration, on IV cipro. Pt has persistent fever spikes Plan: Transaminitis, acute, trending up - ischemic injury from hypotension from ?sepsis vs hep c vs cocaine use - AST 115--> 500s, ALT 82--> 300s - Normal previous admissions - HIV negative - HCV reactive - HCV RNA pending - Abd US: mild splenomegaly, no liver abnormality - Ferritin wnl - f/u Abs; anti-smooth negative - Avoid hepatotoxic agents - GI consulted (Hsei)- not candidate for tx with continued substance use, rec outpatient f/u E. coli urinary tract infection, acute Fever - resolving - currently afebrile 24H - UA: many irineo, 652 WBC, 3+ LE, pos nitrate - UCx: E. coli (negative ESBL) - cipro 400 mg IV Q12H started 09/26 - d/c'ed 09/29 due to concerns of causing transaminitis - will start ceftriaxone 1gm Q12H - d/c fluids - Blood cultures negative 24H Polysubstance use disorder, chronic- heroin, cocaine, tobacco - UDS positive for opiates and cocaine - BAL <10 - Nicoderm - Maalox PRN - Imodium PRN - Clonidine 0.1 mg PO Q4H PRN - Ativan 1 mg PO Q6H PRN - Methadone taper - Management as per psychiatry (Arnulfo) Ppx: VTE: SCDs GI: Protonix 40 mg PO daily Diet: Regular Code status: full code Dispo:IV abx changed from cipro to ceftriaxone on 09/29 due to concerns of cipro causing transaminitis <Pichardo,Peter H - Last Filed: 09/29/18 15:56> Objective - Vital Signs/Intake and Output Vital Signs (last 24 hours): Temp Pulse Resp BP Pulse Ox 97.9 F 58 L 20 115/71 100 09/29/18 15:46 09/29/18 15:46 09/29/18 15:46 09/29/18 15:46 09/29/18 15:46 Intake and Output: 09/29/18 09/29/18 06:59 18:59 Intake Total 1250 Balance 1250 - Medications Medications: Current Medications Al Hydrox/Mg Hydrox/Simethicone (Maalox 30 Ml) 30 ml PO TID PRN PRN Reason: Indigestion / Heartburn Clonidine HCl (Catapres) 0.1 mg PO Q4 PRN PRN Reason: COWS Score More or Equal to 5 Ceftriaxone Sodium (Rocephin Iv 1 Gm Duplex) 50 mls @ 100 mls/hr IVPB Q12H RITO; Protocol Ibuprofen (Motrin Tab) 600 mg PO Q6 PRN PRN Reason: Pain, moderate (4-7) Last Admin: 09/28/18 19:49 Dose: 600 mg Loperamide HCl (Imodium) 2 mg PO Q8 PRN PRN Reason: Diarrhea Lorazepam (Ativan) 1 mg PO Q6 PRN PRN Reason: Allergy symptoms Last Admin: 09/29/18 13:57 Dose: 1 mg Methadone HCl (Methadone) 5 mg PO BID [facility] Stop: 09/30/18 10:01 Nicotine (Nicoderm Cq) 1 patch TD DAILY [facility] Last Admin: 09/29/18 10:26 Dose: 1 patch Pantoprazole Sodium (Protonix Ec Tab) 40 mg PO DAILY [facility] Last Admin: 09/29/18 10:26 Dose: 40 mg Trazodone HCl (Desyrel) 100 mg PO HS PRN PRN Reason: Insomnia - Labs Labs: 09/29/18 08:09 09/29/18 08:09 Attending/Attestation - Attestation I have personally seen and examined this patient.: Yes I have fully participated in the care of the patient.: Yes I have reviewed all pertinent clinical information, including history, physical exam and plan: Yes Notes (Text): 09/29/18 15:52 MEdical attending: Patient was seen and examined by me. Agree with the above note by the medical radiation tech The patient was not in any acute distress. She was not as anxious and tearful like when we saw her yesterday. The patient did not have any tremors or shaking when we examined her. The patient abx was changed to cipro to rocephin IV LFTs remains elevated, we stopped the Cipro, continue to monitor. Per GI the resons maybe multifactorial including the Hepatitis C. Shyam Pichardo
[2018-09-29] MEDS: Sodium Chloride 0.9% 1,000 ML IV SCH (07:05)
--- NOTE | 2018-09-29 07:22 | CP.PCM.PN ---
<Kisha Correa - Last Filed: 09/29/18 07:22> Subjective - Date & Time of Evaluation Date of Evaluation: 09/29/18 Time of Evaluation: 07:00 - Subjective Subjective: GI Fellow PGY 5 Pt seen and at bedside, pt complains of sweating and poor appetite. No further generalized abdominal discomfort. ROS: A 12pt ROS was negative except as above. Objective - Vital Signs/Intake and Output Vital Signs (last 24 hours): Temp Pulse Resp BP Pulse Ox 97.5 F L 57 L 20 105/56 L 98 09/29/18 05:02 09/28/18 23:25 09/28/18 23:25 09/28/18 23:25 09/28/18 23:25 - Medications Medications: Current Medications Al Hydrox/Mg Hydrox/Simethicone (Maalox 30 Ml) 30 ml PO TID PRN PRN Reason: Indigestion / Heartburn Clonidine HCl (Catapres) 0.1 mg PO Q4 PRN PRN Reason: COWS Score More or Equal to 5 Ciprofloxacin (Cipro 400mg/200ml Dsw) 400 mg in 200 mls @ 133 mls/hr IVPB Q12H [facility]; Protocol Last Admin: 09/28/18 22:38 Dose: 133 mls/hr Sodium Chloride (Sodium Chloride 0.9%) 1,000 mls @ 125 mls/hr IV .Q8H [facility] Last Admin: 09/28/18 13:57 Dose: Not Given Ibuprofen (Motrin Tab) 600 mg PO Q6 PRN PRN Reason: Pain, moderate (4-7) Last Admin: 09/28/18 19:49 Dose: 600 mg Loperamide HCl (Imodium) 2 mg PO Q8 PRN PRN Reason: Diarrhea Lorazepam (Ativan) 1 mg PO Q6 PRN PRN Reason: Allergy symptoms Last Admin: 09/28/18 11:04 Dose: 1 mg Methadone HCl (Methadone) 10 mg PO Q24H [facility]; Taper Stop: 09/30/18 11:44 Last Admin: 09/28/18 11:05 Dose: 10 mg Nicotine (Nicoderm Cq) 1 patch TD DAILY [facility] Last Admin: 09/28/18 11:05 Dose: 1 patch Pantoprazole Sodium (Protonix Ec Tab) 40 mg PO DAILY [facility] Last Admin: 09/28/18 11:05 Dose: 40 mg - Labs Labs: 09/28/18 07:36 09/28/18 07:36 - Constitutional Appears: Non-toxic, No Acute Distress, Older Than Stated Age - Head Exam Head Exam: ATRAUMATIC, NORMAL INSPECTION, NORMOCEPHALIC - Eye Exam Eye Exam: EOMI, Normal appearance, PERRL - ENT Exam ENT Exam: Mucous Membranes Moist - Neck Exam Neck Exam: Full ROM - Respiratory Exam Respiratory Exam: Clear to Ausculation Bilateral, NORMAL BREATHING PATTERN - Cardiovascular Exam Cardiovascular Exam: Tachycardia, +S1, +S2 - GI/Abdominal Exam GI & Abdominal Exam: Soft, Normal Bowel Sounds. absent: Distended, Firm, Guarding, Tenderness, Organomegaly - Rectal Exam Rectal Exam: Deferred - Extremities Exam Extremities Exam: Full ROM, Normal Inspection - Back Exam Back Exam: NORMAL INSPECTION - Neurological Exam Neurological Exam: Alert, Awake, Oriented x3 - Psychiatric Exam Psychiatric exam: Normal Affect, Normal Mood - Skin Skin Exam: Dry, Intact, Normal Color, Warm Assessment and Plan - Assessment and Plan (Free Text) Assessment: 1. Transamenemia 2. HCV antibody positive 3. Polysubstance abuse 4. Fever/Hypotension 5. UTI Plan: -LFTs elevated, continue to monitor LFTs from today, likely from ischemic injury with cocaine use, HCV, persistent hypotension/sepsis -Recommend IVF resuscitation and abx in setting of Sepsis -Abdominal US negative for mass lesions, cirrhosis, obstruction -Awaiting radiology discussion on portal and hepatic vein patency, will update -Avoid hepatotoxic therapies -Diet as tolerated -Autoimmune panel ASMA negative, AMA pending and iron studies Ferritin 136 -HCV viral load pending, would benefit from outpatient follow up -Will continue to monitor patient clinical course <Sandeep Granger - Last Filed: 09/29/18 09:00> Objective - Vital Signs/Intake and Output Vital Signs (last 24 hours): Temp Pulse Resp BP Pulse Ox 97.4 F L 56 L 20 123/73 100 09/29/18 08:28 09/29/18 08:28 09/29/18 08:28 09/29/18 08:28 09/29/18 08:28 - Medications Medications: Current Medications Al Hydrox/Mg Hydrox/Simethicone (Maalox 30 Ml) 30 ml PO TID PRN PRN Reason: Indigestion / Heartburn Clonidine HCl (Catapres) 0.1 mg PO Q4 PRN PRN Reason: COWS Score More or Equal to 5 Ciprofloxacin (Cipro 400mg/200ml Dsw) 400 mg in 200 mls @ 133 mls/hr IVPB Q12H [facility]; Protocol Last Admin: 09/28/18 22:38 Dose: 133 mls/hr Sodium Chloride (Sodium Chloride 0.9%) 1,000 mls @ 125 mls/hr IV .Q8H [facility] Last Admin: 09/29/18 07:05 Dose: 125 mls/hr Ibuprofen (Motrin Tab) 600 mg PO Q6 PRN PRN Reason: Pain, moderate (4-7) Last Admin: 09/28/18 19:49 Dose: 600 mg Loperamide HCl (Imodium) 2 mg PO Q8 PRN PRN Reason: Diarrhea Lorazepam (Ativan) 1 mg PO Q6 PRN PRN Reason: Allergy symptoms Last Admin: 09/28/18 11:04 Dose: 1 mg Methadone HCl (Methadone) 10 mg PO Q24H [facility]; Taper Stop: 09/30/18 11:44 Last Admin: 09/28/18 11:05 Dose: 10 mg Nicotine (Nicoderm Cq) 1 patch TD DAILY [facility] Last Admin: 09/28/18 11:05 Dose: 1 patch Pantoprazole Sodium (Protonix Ec Tab) 40 mg PO DAILY [facility] Last Admin: 09/28/18 11:05 Dose: 40 mg - Labs Labs: 09/29/18 08:09 09/29/18 08:09 Attending/Attestation - Attestation I have personally seen and examined this patient.: Yes I have fully participated in the care of the patient.: Yes I have reviewed all pertinent clinical information, including history, physical exam and plan: Yes Notes (Text): 09/29/18 08:58 I have seen and examined patient with GI fellow. No acute events overnight, she reports ongoing weakness which is slowly improving. She denies abdominal pain, nausea, vomiting, fever/chills. Tolerating PO diet without difficulty. Polysubstance abuse Fever, UTI Transaminitis HCV - Diet as tolerated - Abdominal US with doppler reviewed with radiology, no features of vascular thrombosis - LFTs continue to rise, monitor and avoid hepatotoxic therapies. Etiology likely multifactorial in setting of HCV, recent cocaine use, sepsis/hypotension. - Continue with antibiotic therapy as per medical team - Awaiting for additional autoimmune panel results - Will continue to monitor patient clinical course
[2018-09-29 08:20] LABS: BASO % 0.4 % (0.0-2.0); EOS # 0.1 K/uL (0.0-0.7); EOS % 1.5 % (0.0-4.0); HEMOGLOBIN 12.5 g/dL (11.0-16.0); LYMPH # 1.5 K/uL (1.0-4.3); LYMPH % 35.7 % (20.0-40.0); MEAN CELL VOLUME 88.4 fL (81.0-99.0); MEAN CORPUSCULAR HEMOGLOBIN 29.6 pg (27.0-31.0); MEAN CORPUSCULAR HGB CONC 33.5 g/dL (33.0-37.0); MEAN PLATELET VOLUME 10.8 fL (7.2-11.7); MONO # 0.6 K/uL (0.0-0.8); MONO % 13.7 % (0.0-10.0); NEUT # 2.1 K/uL (1.8-7.0); NEUT % 48.7 % (50.0-75.0); NRBC % 0.2 % (0.0-2.0); RBC 4.21 Mil/uL (3.80-5.20); RED CELL DISTRIBUTION WIDTH 15.5 % (11.5-14.5); WHITE BLOOD COUNT 4.2 K/uL (4.8-10.8)
[2018-09-29 08:56] LABS: ALB/GLOB RATIO 1.1 (1.0-2.1); ALBUMIN 2.6 g/dL (3.5-5.0); ALT/SGPT 375 U/L (9-52); AST/SGOT 550 U/L (14-36); BLOOD UREA NITROGEN 9 mg/dL (7-17); CALCIUM 8.6 mg/dl (8.6-10.4); GFR NON-AFRICAN AMERICAN > 60
[2018-09-29] MEDS: Ciprofloxacin 400mg/200ml D5W 400 MG/200 ML BAG IVPB SCH (10:26)
[2018-09-29] MEDS: Pantoprazole 40 mg EC Tab PO SCH (10:26)
--- NOTE | 2018-09-29 12:53 | CARD ---
APPROVED REPORT Date of service: 09/26/2018 EKG Measurement Heart [id number] <Conclusion> Sinus rhythm with premature atrial complexes Nonspecific ST and T wave abnormality Abnormal ECG
[2018-09-29] MEDS: cefTRIAXone IV 1 gm in Dextros 50 ML IVPB SCH (17:27)
[2018-09-29 23:54] VITALS: BP 106/59; PULSE 51; TEMP 99.4; O2SAT 98
[2018-09-30] MEDS: cefTRIAXone IV 1 gm in Dextros 50 ML IVPB SCH (03:32)
[2018-09-30 07:48] LABS: BASO % 0.6 % (0.0-2.0); EOS # 0.1 K/uL (0.0-0.7); EOS % 1.5 % (0.0-4.0); HEMOGLOBIN 13.6 g/dL (11.0-16.0); LYMPH # 2.1 K/uL (1.0-4.3); LYMPH % 32.8 % (20.0-40.0); MEAN CELL VOLUME 88.4 fL (81.0-99.0); MEAN CORPUSCULAR HEMOGLOBIN 29.8 pg (27.0-31.0); MEAN CORPUSCULAR HGB CONC 33.7 g/dL (33.0-37.0); MEAN PLATELET VOLUME 10.1 fL (7.2-11.7); MONO # 0.6 K/uL (0.0-0.8); MONO % 9.4 % (0.0-10.0); NEUT # 3.5 K/uL (1.8-7.0); NEUT % 55.7 % (50.0-75.0); RBC 4.57 Mil/uL (3.80-5.20); RED CELL DISTRIBUTION WIDTH 15.3 % (11.5-14.5); WHITE BLOOD COUNT 6.3 K/uL (4.8-10.8)
[2018-09-30 07:57] LABS: INR 1.1; PROTHROMBIN TIME 12.5 SECONDS (9.7-12.2)
--- NOTE | 2018-09-30 08:20 | CP.PCM.PN ---
<Kisha Correa - Last Filed: 09/30/18 08:22> Subjective - Date & Time of Evaluation Date of Evaluation: 09/30/18 Time of Evaluation: 08:00 - Subjective Subjective: GI Fellow PGY 5 Progress Note Pt seen and at bedside, pt complains of sweating and poor appetite. No further generalized abdominal discomfort. Denies any fevers or chills. Pt reassures that she will not use any further drugs. ROS: A 12pt ROS was negative except as above. Objective - Vital Signs/Intake and Output Vital Signs (last 24 hours): Temp Pulse Resp BP Pulse Ox 99.4 F 51 L 20 106/59 L 98 09/29/18 23:20 09/29/18 23:20 09/29/18 23:20 09/29/18 23:20 09/29/18 23:20 - Medications Medications: Current Medications Al Hydrox/Mg Hydrox/Simethicone (Maalox 30 Ml) 30 ml PO TID PRN PRN Reason: Indigestion / Heartburn Clonidine HCl (Catapres) 0.1 mg PO Q4 PRN PRN Reason: COWS Score More or Equal to 5 Ceftriaxone Sodium (Rocephin Iv 1 Gm Duplex) 50 mls @ 100 mls/hr IVPB Q12H [facility]; Protocol Last Admin: 09/30/18 03:32 Dose: 100 mls/hr Ibuprofen (Motrin Tab) 600 mg PO Q6 PRN PRN Reason: Pain, moderate (4-7) Last Admin: 09/28/18 19:49 Dose: 600 mg Loperamide HCl (Imodium) 2 mg PO Q8 PRN PRN Reason: Diarrhea Lorazepam (Ativan) 1 mg PO Q6 PRN PRN Reason: Allergy symptoms Last Admin: 09/29/18 13:57 Dose: 1 mg Methadone HCl (Methadone) 5 mg PO BID [facility] Stop: 09/30/18 10:01 Last Admin: 09/29/18 17:27 Dose: 5 mg Nicotine (Nicoderm Cq) 1 patch TD DAILY [facility] Last Admin: 09/29/18 10:26 Dose: 1 patch Pantoprazole Sodium (Protonix Ec Tab) 40 mg PO DAILY [facility] Last Admin: 09/29/18 10:26 Dose: 40 mg Trazodone HCl (Desyrel) 100 mg PO HS PRN PRN Reason: Insomnia Last Admin: 09/29/18 21:25 Dose: 100 mg - Labs Labs: 09/30/18 07:29 09/29/18 08:09 PT 12.5 SECONDS (9.7-12.2) H 09/30/18 07:29 INR 1.1 09/30/18 07:29 - Constitutional Appears: Non-toxic, No Acute Distress, Unkempt, Older Than Stated Age - Head Exam Head Exam: ATRAUMATIC, NORMAL INSPECTION, NORMOCEPHALIC - Eye Exam Eye Exam: EOMI, Normal appearance, PERRL Pupil Exam: PERRL - ENT Exam ENT Exam: Mucous Membranes Moist - Neck Exam Neck Exam: Full ROM, Normal Inspection - Respiratory Exam Respiratory Exam: Clear to Ausculation Bilateral, NORMAL BREATHING PATTERN - Cardiovascular Exam Cardiovascular Exam: REGULAR RHYTHM, RRR, +S1, +S2 - GI/Abdominal Exam GI & Abdominal Exam: Soft, Normal Bowel Sounds. absent: Distended, Firm, Guarding, Organomegaly - Rectal Exam Rectal Exam: Deferred - Extremities Exam Extremities Exam: Full ROM, Normal Inspection - Back Exam Back Exam: NORMAL INSPECTION - Neurological Exam Neurological Exam: Alert, Awake, Oriented x3 - Psychiatric Exam Psychiatric exam: Normal Affect, Normal Mood - Skin Skin Exam: Dry, Intact, Normal Color, Warm Assessment and Plan - Assessment and Plan (Free Text) Assessment: 1. Transamenemia 2. HCV antibody positive 3. Polysubstance abuse 4. Sepsis: Fever/Hypotension 5. UTI Plan: -LFTs elevated, continue to monitor LFTs from today, likely from ischemic injury with cocaine use, persistent hypotension/sepsis, and underlying HCV -Sepsis improving, continue IVF and abx per primary team -Abdominal US negative for mass lesions, cirrhosis, obstruction -Reviewed abdominal US with Radiologist, portal and hepatic vein patent with no thrombus -Avoid hepatotoxic therapies -Diet as tolerated -Autoimmune panel ASMA negative, AMA pending and iron studies Ferritin 136 -HCV viral load pending, HCV genotype ordered and HbsAb ordered~ if negative will need to be vaccinated -Discussed with patient about potential treatment options for HCV once patient is detoxed from drug use and maintains abstinence -Pt will need to follow up as an outpatient -Will continue to monitor patient clinical course <Love Agudelo - Last Filed: 09/30/18 14:18> Objective - Vital Signs/Intake and Output Vital Signs (last 24 hours): Temp Pulse Resp BP Pulse Ox 99.4 F 51 L 20 106/59 L 98 09/29/18 23:20 09/29/18 23:20 09/29/18 23:20 09/29/18 23:20 09/29/18 23:20 - Medications Medications: Current Medications Al Hydrox/Mg Hydrox/Simethicone (Maalox 30 Ml) 30 ml PO TID PRN PRN Reason: Indigestion / Heartburn Clonidine HCl (Catapres) 0.1 mg PO Q4 PRN PRN Reason: COWS Score More or Equal to 5 Ceftriaxone Sodium (Rocephin Iv 1 Gm Duplex) 50 mls @ 100 mls/hr IVPB Q12H [facility]; Protocol Last Admin: 09/30/18 03:32 Dose: 100 mls/hr Ibuprofen (Motrin Tab) 600 mg PO Q6 PRN PRN Reason: Pain, moderate (4-7) Last Admin: 09/28/18 19:49 Dose: 600 mg Loperamide HCl (Imodium) 2 mg PO Q8 PRN PRN Reason: Diarrhea Lorazepam (Ativan) 1 mg PO Q6 PRN PRN Reason: Allergy symptoms Last Admin: 09/29/18 13:57 Dose: 1 mg Nicotine (Nicoderm Cq) 1 patch TD DAILY [facility] Last Admin: 09/30/18 09:16 Dose: 1 patch Pantoprazole Sodium (Protonix Ec Tab) 40 mg PO DAILY [facility] Last Admin: 09/30/18 09:16 Dose: 40 mg Trazodone HCl (Desyrel) 100 mg PO HS PRN PRN Reason: Insomnia Last Admin: 09/29/18 21:25 Dose: 100 mg - Labs Labs: 09/30/18 07:29 09/30/18 07:29 PT 12.5 SECONDS (9.7-12.2) H 09/30/18 07:29 INR 1.1 09/30/18 07:29 Attending/Attestation - Attestation I have personally seen and examined this patient.: Yes I have fully participated in the care of the patient.: Yes I have reviewed all pertinent clinical information, including history, physical exam and plan: Yes Notes (Text): 09/30/18 14:14 I have seen and examined the patient with the GI fellow. She continued to complain of fatigue, but denies any abdominal pain. Notes no recent EtOH use and states she will stop snorting drugs. She states she is interested in potential treatment for HCV. LTs downtrending today - suspect likely to episode of hypotension on 09/26/18. No evidence of synthetic dysfunction. Await HCV viral load and genotype. Will check Hep B sAb to assess for immunity. Continue to tr end LFTs.
[2018-09-30 08:35] LABS: ALB/GLOB RATIO 1.1 (1.0-2.1); ALBUMIN 3.2 g/dL (3.5-5.0); ALT/SGPT 416 U/L (9-52); AST/SGOT 426 U/L (14-36); BLOOD UREA NITROGEN 11 mg/dL (7-17); CALCIUM 9.4 mg/dl (8.6-10.4); GFR NON-AFRICAN AMERICAN > 60
[2018-09-30] MEDS: Pantoprazole 40 mg EC Tab PO SCH (09:16)
--- NOTE | 2018-09-30 09:26 | CP.PCM.PN ---
Objective - Vital Signs/Intake and Output Vital Signs (last 24 hours): Temp Pulse Resp BP Pulse Ox 99.4 F 51 L 20 106/59 L 98 09/29/18 23:20 09/29/18 23:20 09/29/18 23:20 09/29/18 23:20 09/29/18 23:20 - Medications Medications: Current Medications Al Hydrox/Mg Hydrox/Simethicone (Maalox 30 Ml) 30 ml PO TID PRN PRN Reason: Indigestion / Heartburn Clonidine HCl (Catapres) 0.1 mg PO Q4 PRN PRN Reason: COWS Score More or Equal to 5 Ceftriaxone Sodium (Rocephin Iv 1 Gm Duplex) 50 mls @ 100 mls/hr IVPB Q12H [facility]; Protocol Last Admin: 09/30/18 03:32 Dose: 100 mls/hr Ibuprofen (Motrin Tab) 600 mg PO Q6 PRN PRN Reason: Pain, moderate (4-7) Last Admin: 09/28/18 19:49 Dose: 600 mg Loperamide HCl (Imodium) 2 mg PO Q8 PRN PRN Reason: Diarrhea Lorazepam (Ativan) 1 mg PO Q6 PRN PRN Reason: Allergy symptoms Last Admin: 09/29/18 13:57 Dose: 1 mg Methadone HCl (Methadone) 5 mg PO BID [facility] Stop: 09/30/18 10:01 Last Admin: 09/30/18 09:16 Dose: 5 mg Nicotine (Nicoderm Cq) 1 patch TD DAILY [facility] Last Admin: 09/30/18 09:16 Dose: 1 patch Pantoprazole Sodium (Protonix Ec Tab) 40 mg PO DAILY [facility] Last Admin: 09/30/18 09:16 Dose: 40 mg Trazodone HCl (Desyrel) 100 mg PO HS PRN PRN Reason: Insomnia Last Admin: 09/29/18 21:25 Dose: 100 mg - Labs Labs: 09/30/18 07:29 09/30/18 07:29 PT 12.5 SECONDS (9.7-12.2) H 09/30/18 07:29 INR 1.1 09/30/18 07:29
[2018-09-30 13:04] LABS: MITOCHONDRIAL AB TITER 1:20 Titer (< 1:20)
--- NOTE | 2018-09-30 15:09 | CP.PCM.DIS ---
<Gato Urena M - Last Filed: 09/30/18 15:00> Provider - Provider Date of Admission: 09/25/18 14:30 Attending physician: Kerline Evans MD Consults: 09/26/18 01:10 Hospitalist Consult Routine Comment: Pt. has 99.5 temp. Consulting Provider: Pradeep Moreno Consulting Physician: Pradeep Moreno Reason for Consult: Pt. has 99.5 temp and urine analisys result 09/26/18 17:07 Gastroenterology Consult Routine Comment: Consulting Provider: Love Agudelo Consulting Physician: Love Agudelo Reason for Consult: HCV reactive, elevated LFTs 09/27/18 15:21 Psychiatry Consult Routine Comment: Consulting Provider: Bro Arredondo Consulting Physician: Bro Arredondo Reason for Consult: patient transferred from [facility] Time Spent in preparation of Discharge (in minutes): 40 Diagnosis - Discharge Diagnosis (1) Transaminitis Status: Acute Comment: elevated lfts, began trending downward on 09/30, will need outpatient monitoring (2) Urinary tract infection Status: Acute Comment: treated w/ ciproflaxicin & ceftriaxone Hospital Course - Lab Results Lab Results: Micro Results 09/28/18 01:52 Blood Blood Culture - Preliminary NO GROWTH AFTER 48 HOURS 09/28/18 00:45 Blood Blood Culture - Preliminary NO GROWTH AFTER 48 HOURS 09/25/18 14:58 Urine,Clean Catch Urine Culture - Final Escherichia Coli Most Recent Lab Values WBC 6.3 K/uL (4.8-10.8) 09/30/18 07:29 RBC 4.57 Mil/uL (3.80-5.20) 09/30/18 07:29 Hgb 13.6 g/dL (11.0-16.0) 09/30/18 07:29 Hct 40.4 % (34.0-47.0) 09/30/18 07:29 MCV 88.4 fL (81.0-99.0) 09/30/18 07:29 MCH 29.8 pg (27.0-31.0) 09/30/18 07:29 MCHC 33.7 g/dL (33.0-37.0) 09/30/18 07:29 RDW 15.3 % (11.5-14.5) H 09/30/18 07:29 Plt Count 156 K/uL (130-400) 09/30/18 07: MPV 10.1 fL (7.2-11.7) 09/30/18 07: Neut % (Auto) 55.7 % (50.0-75.0) 09/30/18 07: Lymph % (Auto) 32.8 % (20.0-40.0) 09/30/18 07: [place] % (Auto) 9.4 % (0.0-10.0) 09/30/18 07: Eos % (Auto) 1.5 % (0.0-4.0) 09/30/18 07: Baso % (Auto) 0.6 % (0.0-2.0) 09/30/18 07: Neut # (Auto) 3.5 K/uL (1.8-7.0) 09/30/18 07: Lymph # (Auto) 2.1 K/uL (1.0-4.3) 09/30/18 07: [place] # (Auto) 0.6 K/uL (0.0-0.8) 09/30/18 07: Eos # (Auto) 0.1 K/uL (0.0-0.7) 09/30/18 07: Baso # (Auto) 0.0 K/uL (0.0-0.2) 09/30/18 07: Neutrophils % (Manual) 83 % (50-75) H 09/26/18 14:27 Band Neutrophils % 2 % (0-2) 09/26/18 14:27 Lymphocytes % (Manual) 10 % (20-40) L 09/26/18 14:27 Reactive Lymphs % 1 % (0-0) H 09/25/18 12:57 Monocytes % (Manual) 5 % (0-10) 09/26/18 14:27 Platelet Estimate Slightly decreased (NORMAL) L 09/26/18 14:27 Anisocytosis (manual) Slight 09/26/18 14:27 PT 12.5 SECONDS (9.7-12.2) H 09/30/18 07: INR 1.1 09/30/18 07: Sodium 140 mmol/L (132-148) 09/30/18 07:29 Potassium 4.1 mmol/L (3.6-5.2) 09/30/18 07:29 Chloride 106 mmol/L (98-107) 09/30/18 07:29 Carbon Dioxide 26 mmol/L (22-30) 09/30/18 07:29 Anion Gap 12 (10-20) 09/30/18 07:29 BUN 11 mg/dL (7-17) 09/30/18 07:29 Creatinine 0.6 mg/dL (0.7-1.2) L 09/30/18 07:29 Est GFR ( Amer) > 60 09/30/18 07:29 Est GFR (Non-Af Amer) > 60 09/30/18 07:29 POC Glucose (mg/dL) 113 mg/dL (65-110) H 09/29/18 04:53 Random Glucose 86 mg/dL (65-105) 09/30/18 07:29 Calcium 9.4 mg/dl (8.6-10.4) 09/30/18 07:29 Phosphorus 4.2 mg/dL (2.5-4.5) 09/30/18 07:29 Magnesium 1.9 mg/dL (1.6-2.3) 09/30/18 07:29 Ferritin 136.0 ng/mL 09/27/18 07:00 Total Bilirubin 0.6 mg/dL (0.2-1.3) 09/30/18 07:29 AST 426 U/L (14-36) H D 09/30/18 07:29 ALT 416 U/L (9-52) H 09/30/18 07:29 Alkaline Phosphatase 95 U/L (38-126) 09/30/18 07:29 Total Protein 6.1 g/dL (6.3-8.3) L 09/30/18 07:29 Albumin 3.2 g/dL (3.5-5.0) L D 09/30/18 07:29 Globulin 2.9 gm/dL (2.2-3.9) 09/30/18 07:29 Albumin/Globulin Ratio 1.1 (1.0-2.1) 09/30/18 07:29 Mitochondrial AB Titer 1:20 Titer (< 1:20) H 09/27/18 11:31 Urine Color Yellow (YELLOW) 09/25/18 13:37 Urine Clarity Hazy (Clear) 09/25/18 13:37 Urine pH 5.0 (5.0-8.0) 09/25/18 13:37 Ur Specific [place] 1.009 (1.003-1.030) 09/25/18 13:37 Urine Protein Negative mg/dL (NEGATIVE) 09/25/18 13:37 Urine Glucose (UA) Normal mg/dL (Normal) 09/25/18 13:37 Urine Ketones Negative mg/dL (NEGATIVE) 09/25/18 13:37 Urine Blood 2+ (NEGATIVE) H 09/25/18 13:37 Urine Nitrate Positive (NEGATIVE) H 09/25/18 13:37 Urine Bilirubin Negative (NEGATIVE) 09/25/18 13:37 Urine Urobilinogen 4.0 mg/dL (0.2-1.0) H 09/25/18 13:37 Ur Leukocyte Esterase 3+ Leif/uL (Negative) H 09/25/18 13:37 Urine WBC (Auto) 652 /hpf (0-5) H 09/25/18 13:37 Urine RBC (Auto) 14 /hpf (0-3) H 09/25/18 13:37 Urine WBC Clumps (Auto) Few /hpf (NONE) H 09/25/18 13:37 Ur Squamous Epith Cells 1 /hpf (0-5) 09/25/18 13:37 Urine Bacteria Many (<OCC) H 09/25/18 13:37 Urine Opiates Screen Positive (NEGATIVE) H 09/25/18 13:37 Urine Methadone Screen Negative (NEGATIVE) 09/25/18 13:37 Ur Barbiturates Screen Negative (NEGATIVE) 09/25/18 13:37 Ur Phencyclidine Scrn Negative (NEGATIVE) 09/25/18 13:37 Ur Amphetamines Screen Negative (NEGATIVE) 09/25/18 13:37 U Benzodiazepines Scrn Negative (NEGATIVE) 09/25/18 13:37 U Oth Cocaine Metabols Positive (NEGATIVE) H 09/25/18 13:37 U Cannabinoids Screen Negative (NEGATIVE) 09/25/18 13:37 Alcohol, Quantitative < 10 mg/dl (0-10) 09/25/18 12:57 Anti-Mitochondrial Ab Positive (Negative) H 09/27/18 11:31 Anti-Smooth Muscle Ab Negative (Negative) 09/27/18 11:31 Hepatitis A IgM Ab Negative (NEGATIVE) 09/26/18 14:27 Hep Bs Antigen Negative (NEGATIVE) 09/26/18 14:27 Hep Bs Antibody Positive (NEGATIVE) 09/30/18 11:51 Hep B Core IgM Ab Negative (NEGATIVE) 09/26/18 14:27 Hepatitis C Antibody Reactive (NEGATIVE) 09/26/18 14:27 HIV 1&2 Antibody Screen Negative (NEGATIVE) 09/26/18 14:27 - Hospital Course Hospital Course: HPI: 53 yo female w/ PMH of sciatica and polysubstance abuse admitted to hospital for detox. Patient states that she last used heroin earlier today. Patient was minimally cooperative with exam as she requested to go back to sleep because she was going through withdrawal. Patient said that her fever had subsided during interview likely 2/2 to recent Tylenol administered. Patient denies any urinary symptoms however the urinalysis suggests otherwise. Patient had no specific complaints related to the fever. Patient just stated multiple times she wanted to go to sleep because she was going through withdrawal. Admits to fevers and leg pain. Denies cp, sob, n/v, constipation or diarrhea, and dysuria or any other urinary symptoms Patient transferred to medical floor due to spiking fevers. Patient found to have UTI w/o positive blood cultures X 48 h. UTI treated w/ ciprofloaxin & ceftriaxone. Pt had transaminitis, GI consulted, possibly due to cocaine use vs hep C positive. Patient started having downtrending of LFTs w/ max in 500s with start of downtrending. Patient informed they will need for hep c work up with GI. Patient afebrile 48H upon discharge. Above is only a summary of patient stay, see EMR for full details. Below are discharge instructions provided upon discharge. Patient is stable for discharge per Dr. Pichardo. 1) Please follow up with her primary doctor within 1 week for monitoring of her liver function tests. If patient cannot attend her primary doctor, she should follow up at the [facility]- FridayOctober 05 at 9am Located at [address] [place] [address] Please call above number and make an appointment. 2) Please also follow up with GI specialist Dr. Granger in 1 -2 weeks upon discharge regarding your elevated liver function tests and hepatitis C. 3) Please follow up with [facility] (medical assistance detention for homeless) on October 07 at 9:00AM. 4) If any of her symptoms return or worsen, please return to hear nearest medical facility. 5) Please refrain from using any illicit drugs. Please take care and be well. Discharge Exam - Head Exam Head Exam: ATRAUMATIC, NORMAL INSPECTION, NORMOCEPHALIC - Eye Exam Eye Exam: EOMI, Normal appearance - ENT Exam ENT Exam: Mucous Membranes Moist - Respiratory Exam Respiratory Exam: Rales. absent: Chest Wall Tenderness, Decreased Breath Sounds Additional comments: minor rales L >R, improved form previous days - Cardiovascular Exam Cardiovascular Exam: +S1, +S2. absent: Systolic Murmur - GI/Abdominal Exam GI & Abdominal Exam: Normal Bowel Sounds, Soft - Extremities Exam Extremities exam: full ROM, normal inspection Additional comments: no pedal edema, calf tenderness - Neurological Exam Neurological exam: Alert, Oriented x3 - Psychiatric Exam Psychiatric exam: Normal Affect, Normal Mood - Skin Skin Exam: Dry, Intact, Normal Color, Warm Discharge Plan - Follow Up Plan Condition: STABLE Disposition: HOME/ ROUTINE Instructions: Smoking: Not Just Harmful to Your Lungs and Heart, Cocaine Use Disorder, Drug Abuse Treatment, Opioid Use Disorder, Urinary Tract Infection in Women (DC), Urinary Tract Infection in Men (DC), Dysuria (GEN) Additional Instructions: Patient is stable for discharge per Dr. Pichardo. 1) Please follow up with her primary doctor within 1 week for monitoring of her liver function tests. If patient cannot attend her primary doctor, she should follow up at the [facility]- FridayOctober 05 at 9am Located at [address] [place] [address] Please call above number and make an appointment. 2) Please also follow up with GI specialist Dr. Granger in 1 -2 weeks upon discharge regarding your elevated liver function tests and hepatitis C. 3) Please follow up with [facility] (medical assistance detention for homeless) on October 07 at 9:00AM. 4) If any of her symptoms return or worsen, please return to hear nearest medical facility. 5) Please refrain from using any illicit drugs. Please take care and be well. Referrals: [facility] [Outside] - 10/05/18 9:00 am Sandeep Granger MD [Staff Provider] - <Shyam Pichardo - Last Filed: 09/30/18 17:39> Provider - Provider Date of Admission: 09/25/18 14:30 Attending physician: Kerline Evans MD Consults: 09/26/18 01:10 Hospitalist Consult Routine Comment: Pt. has 99.5 temp. Consulting Provider: Pradeep Moreno Consulting Physician: Pradeep Moreno Reason for Consult: Pt. has 99.5 temp and urine analisys result 09/26/18 17:07 Gastroenterology Consult Routine Comment: Consulting Provider: Love Agudelo Consulting Physician: Love Agudelo Reason for Consult: HCV reactive, elevated LFTs 09/27/18 15:21 Psychiatry Consult Routine Comment: Consulting Provider: Bro Arredondo Consulting Physician: Bro Arredondo Reason for Consult: patient transferred from [facility] Course - Lab Results Lab Results: Micro Results 09/28/18 01:52 Blood Blood Culture - Preliminary NO GROWTH AFTER 48 HOURS 09/28/18 00:45 Blood Blood Culture - Preliminary NO GROWTH AFTER 48 HOURS 09/25/18 14:58 Urine,Clean Catch Urine Culture - Final Escherichia Coli Most Recent Lab Values WBC 6.3 K/uL (4.8-10.8) 09/30/18 07:29 RBC 4.57 Mil/uL (3.80-5.20) 09/30/18 07:29 Hgb 13.6 g/dL (11.0-16.0) 09/30/18 07:29 Hct 40.4 % (34.0-47.0) 09/30/18 07:29 MCV 88.4 fL (81.0-99.0) 09/30/18 07:29 MCH 29.8 pg (27.0-31.0) 09/30/18 07:29 MCHC 33.7 g/dL (33.0-37.0) 09/30/18 07:29 RDW 15.3 % (11.5-14.5) H 09/30/18 07:29 Plt Count 156 K/uL (130-400) 09/30/18 07:29 MPV 10.1 fL (7.2-11.7) 09/30/18 07:29 Neut % (Auto) 55.7 % (50.0-75.0) 09/30/18 07: Lymph % (Auto) 32.8 % (20.0-40.0) 09/30/18 07: [place] % (Auto) 9.4 % (0.0-10.0) 09/30/18 07: Eos % (Auto) 1.5 % (0.0-4.0) 09/30/18 07: Baso % (Auto) 0.6 % (0.0-2.0) 09/30/18 07: Neut # (Auto) 3.5 K/uL (1.8-7.0) 09/30/18 07: Lymph # (Auto) 2.1 K/uL (1.0-4.3) 09/30/18 07: [place] # (Auto) 0.6 K/uL (0.0-0.8) 09/30/18 07: Eos # (Auto) 0.1 K/uL (0.0-0.7) 09/30/18 07: Baso # (Auto) 0.0 K/uL (0.0-0.2) 09/30/18 07:29 Neutrophils % (Manual) 83 % (50-75) H 09/26/18 14:27 Band Neutrophils % 2 % (0-2) 09/26/18 14:27 Lymphocytes % (Manual) 10 % (20-40) L 09/26/18 14:27 Reactive Lymphs % 1 % (0-0) H 09/25/18 12:57 Monocytes % (Manual) 5 % (0-10) 09/26/18 14:27 Platelet Estimate Slightly decreased (NORMAL) L 09/26/18 14:27 Anisocytosis (manual) Slight 09/26/18 14:27 PT 12.5 SECONDS (9.7-12.2) H 09/30/18 07:29 INR 1.1 09/30/18 07:29 Sodium 140 mmol/L (132-148) 09/30/18 07:29 Potassium 4.1 mmol/L (3.6-5.2) 09/30/18 07:29 Chloride 106 mmol/L (98-107) 09/30/18 07:29 Carbon Dioxide 26 mmol/L (22-30) 09/30/18 07:29 Anion Gap 12 (10-20) 09/30/18 07:29 BUN 11 mg/dL (7-17) 09/30/18 07:29 Creatinine 0.6 mg/dL (0.7-1.2) L 09/30/18 07:29 Est GFR ( Amer) > 60 09/30/18 07:29 Est GFR (Non-Af Amer) > 60 09/30/18 07:29 POC Glucose (mg/dL) 113 mg/dL (65-110) H 09/29/18 04:53 Random Glucose 86 mg/dL (65-105) 09/30/18 07:29 Calcium 9.4 mg/dl (8.6-10.4) 09/30/18 07:29 Phosphorus 4.2 mg/dL (2.5-4.5) 09/30/18 07:29 Magnesium 1.9 mg/dL (1.6-2.3) 09/30/18 07:29 Ferritin 136.0 ng/mL 09/27/18 07:00 Total Bilirubin 0.6 mg/dL (0.2-1.3) 09/30/18 07:29 AST 426 U/L (14-36) H D 09/30/18 07:29 ALT 416 U/L (9-52) H 09/30/18 07:29 Alkaline Phosphatase 95 U/L (38-126) 09/30/18 07:29 Total Protein 6.1 g/dL (6.3-8.3) L 09/30/18 07:29 Albumin 3.2 g/dL (3.5-5.0) L D 09/30/18 07:29 Globulin 2.9 gm/dL (2.2-3.9) 09/30/18 07:29 Albumin/Globulin Ratio 1.1 (1.0-2.1) 09/30/18 07:29 Mitochondrial AB Titer 1:20 Titer (< 1:20) H 09/27/18 11:31 Urine Color Yellow (YELLOW) 09/25/18 13:37 Urine Clarity Hazy (Clear) 09/25/18 13:37 Urine pH 5.0 (5.0-8.0) 09/25/18 13:37 Ur Specific [place] 1.009 (1.003-1.030) 09/25/18 13:37 Urine Protein Negative mg/dL (NEGATIVE) 09/25/18 13:37 Urine Glucose (UA) Normal mg/dL (Normal) 09/25/18 13:37 Urine Ketones Negative mg/dL (NEGATIVE) 09/25/18 13:37 Urine Blood 2+ (NEGATIVE) H 09/25/18 13:37 Urine Nitrate Positive (NEGATIVE) H 09/25/18 13:37 Urine Bilirubin Negative (NEGATIVE) 09/25/18 13:37 Urine Urobilinogen 4.0 mg/dL (0.2-1.0) H 09/25/18 13:37 Ur Leukocyte Esterase 3+ Leif/uL (Negative) H 09/25/18 13:37 Urine WBC (Auto) 652 /hpf (0-5) H 09/25/18 13:37 Urine RBC (Auto) 14 /hpf (0-3) H 09/25/18 13:37 Urine WBC Clumps (Auto) Few /hpf (NONE) H 09/25/18 13:37 Ur Squamous Epith Cells 1 /hpf (0-5) 09/25/18 13:37 Urine Bacteria Many (<OCC) H 09/25/18 13:37 Urine Opiates Screen Positive (NEGATIVE) H 09/25/18 13:37 Urine Methadone Screen Negative (NEGATIVE) 09/25/18 13:37 Ur Barbiturates Screen Negative (NEGATIVE) 09/25/18 13:37 Ur Phencyclidine Scrn Negative (NEGATIVE) 09/25/18 13:37 Ur Amphetamines Screen Negative (NEGATIVE) 09/25/18 13:37 U Benzodiazepines Scrn Negative (NEGATIVE) 09/25/18 13:37 U Oth Cocaine Metabols Positive (NEGATIVE) H 09/25/18 13:37 U Cannabinoids Screen Negative (NEGATIVE) 09/25/18 13:37 Alcohol, Quantitative < 10 mg/dl (0-10) 09/25/18 12:57 Anti-Mitochondrial Ab Positive (Negative) H 09/27/18 11:31 Anti-Smooth Muscle Ab Negative (Negative) 09/27/18 11:31 Hepatitis A IgM Ab Negative (NEGATIVE) 09/26/18 14:27 Hep Bs Antigen Negative (NEGATIVE) 09/26/18 14:27 Hep Bs Antibody Positive (NEGATIVE) 09/30/18 11:51 Hep B Core IgM Ab Negative (NEGATIVE) 09/26/18 14:27 Hepatitis C Antibody Reactive (NEGATIVE) 09/26/18 14:27 HIV 1&2 Antibody Screen Negative (NEGATIVE) 09/26/18 14:27 Attending/Attestation - Attestation I have personally seen and examined this patient.: Yes I have fully participated in the care of the patient.: Yes I have reviewed all pertinent clinical information, including history, physical exam and plan: Yes Notes (Text): 09/30/18 17:35 Medical attending: Patient was seen and examined by me with the medical service technician The patient was not in any acute distress this morning. She was also not agitated and not yelling as in some previous days The patient was asleep and explained that she did not have tremors but she did have difficulty sleeping The patient has been on abx for the UTI LFTs have now stablized, will discharge today. Patient explains she is trying to enroll in a sustance abuse program. It was explained to the patient that she should consider following up in the [facility] if she does not have primary physcian. We have also again discussed the hepatitic C status as well I hope she will avoid polysubstance abuse Shyam Pichardo
== END 2018-09-30 14:14 | disposition home or self-care (01) | DRG 772 ==
LOC: C.ER 12:05 → C.7D 14:30 → C.5S 09-26 22:06
PROVIDERS: ADMIT Internal Medicine; ATTEND Internal Medicine
PROC: HZ2ZZZZ Detoxification Services for Substance Abuse Treatment (ICD-10-PCS; principal; 2018-09-25)
PROC: HZ42ZZZ Group Counseling for Substance Abuse Treatment, Cognitive-Behavioral (ICD-10-PCS; 2018-09-25)
PROC: HZ46ZZZ Group Counseling for Substance Abuse Treatment, Psychoeducation (ICD-10-PCS; 2018-09-25)
PROC: HZ52ZZZ Individual Psychotherapy for Substance Abuse Treatment, Cognitive-Behavioral (ICD-10-PCS; 2018-09-25)
PROC: HZ59ZZZ Individual Psychotherapy for Substance Abuse Treatment, Supportive (ICD-10-PCS; 2018-09-25)
PROC: HZ56ZZZ Individual Psychotherapy for Substance Abuse Treatment, Psychoeducation (ICD-10-PCS; 2018-09-25)
PROC: GZHZZZZ Group Psychotherapy (ICD-10-PCS; 2018-09-25)
PROC: GZ58ZZZ Individual Psychotherapy, Cognitive-Behavioral (ICD-10-PCS; 2018-09-25)
PROC: GZ56ZZZ Individual Psychotherapy, Supportive (ICD-10-PCS; 2018-09-25)
DX: F11.23 Opioid dependence with withdrawal (principal); R45.851 Suicidal ideations; F33.2 Major depressive disorder, recurrent severe without psychotic features; F14.20 Cocaine dependence, uncomplicated; F17.210 Nicotine dependence, cigarettes, uncomplicated; Z86.19 Personal history of other infectious and parasitic diseases; B19.20 Unspecified viral hepatitis C without hepatic coma; B96.20 Unspecified Escherichia coli [E. coli] as the cause of diseases classified elsewhere; E86.0 Dehydration; G47.00 Insomnia, unspecified; N39.0 Urinary tract infection, site not specified; Z91.5 Personal history of self-harm